=== PATIENT | male | born 1930 | race Caucasian/White ===

== ENCOUNTER 2017-02-25 08:50 | Inpatient (IN) | payer OTHER ==
--- NOTE | 2017-02-25 09:05 | PDOC ---
History of Present Illness - General Chief Complaint: Bleeding from Anus Stated Complaint: BLOOD IN STOOL Time Seen by Provider: 02/25/17 09:00 - History of Present Illness Initial Comments: 02/25/17 09:02 86 yo M with h/o HTN, NIDDM, and GERD, who presents with blood per rectum. Pt. reports brisk bright red blood per rectum beginning 1400 ( 02/25/17) with diffuse abdominal pain. Two episodes prior to arrival with gross bright red blood intermixed with stool. He describes abdominal pain as achy and unremitting. No alleviators or triggers of pain. Denies postprandial pain or trauma to abdomen. Associated with nausea and one episode of non bilious emesis. No hematemesis. Endorses ongoing constipation. Denies fevers/chills, chest pain, SOB, urinary complaints, lightheadedness. Abdominal pain mildly improved with 2 ibruprofen tablets. Denies chronic NSAID use or anticoagulation. ASA 81 mg PO QD. No changes in diet, recent trips, or Denies h /o GI disorders, or abdominal procedures. States that he had colonoscopy 3 years ago with polyps. Denies h/o tobacco or alcohol use. Technical Solutions Director phone # [phone] Past History - Past Medical History Allergies/Adverse Reactions: Allergies Allergy/AdvReac Type Severity Reaction Status Date / Time No Known Allergies Allergy Verified 02/25/17 08:55 Home Medications: Ambulatory Orders Aspirin [Aspir 81] 81 mg PO DAILY 04/01/14 Amlodipine Besylate [Norvasc -] 5 mg PO DAILY 04/30/16 Glimepiride 2 mg PO DAILY 04/30/16 Losartan Potassium 100 mg PO DAILY 04/30/16 Pantoprazole Sodium 40 mg PO DAILY 04/30/16 Diabetes: Yes HTN: Yes Hypercholesterolemia: Yes - Surgical History Appendectomy: Yes - Immunization History Immunization Up to Date: Yes - Psycho/Social/Smoking Cessation Hx Suicidal Ideation: No Smoking History: Never smoked Information on smoking cessation initiated: No Hx Alcohol Use: No Drug/Substance Use Hx: No Substance Use Type: None Review of Systems - Review of Systems Comments:: 02/25/17 09:48 GENERAL/CONSTITUTIONAL: No fever or chills. No weakness. HEAD, EYES, EARS, NOSE AND THROAT: No change in vision. No ear pain or discharge. No sore throat.- CARDIOVASCULAR: No chest pain or shortness of breath RESPIRATORY: No cough, wheezing, or hemoptysis. GASTROINTESTINAL: + abdominal pain. + nausea. + constipation. without vomiting. No diarrhea or . GENITOURINARY: No dysuria, frequency, or change in urination. MUSCULOSKELETAL: No joint or muscle swelling or pain. No neck or back pain. SKIN: No rash NEUROLOGIC: No headache, vertigo, loss of consciousness, or change in strength/ sensation. ENDOCRINE: No increased thirst. No abnormal weight change HEMATOLOGIC/LYMPHATIC: No anemia, easy bleeding, or history of blood clots. ALLERGIC/IMMUNOLOGIC: No hives or skin allergy. *Physical Exam - Vital Signs Last Vital Signs Temp Pulse Resp BP Pulse Ox 97.9 F 86 18 118/79 100 02/25/17 08:52 02/25/17 08:52 02/25/17 08:52 02/25/17 08:52 02/25/17 08:52 - Physical Exam Comments: 02/25/17 09:49 GENERAL: Awake, alert, and fully oriented, in no acute distress HEAD: No signs of trauma, normocephalic, atraumatic EYES: + Conjuctival pallor. PERRLA, EOMI, sclera anicteric. ENT: Auricles normal inspection, hearing grossly normal, nares patent, oropharynx clear without exudates. Moist mucosa NECK: Normal ROM, supple, no lymphadenopathy, JVD, or masses LUNGS: No distress, speaks full sentences, clear to auscultation bilaterally HEART: Regular rate and rhythm, normal S1 and S2, no murmurs, rubs or gallops, peripheral pulses normal and equal bilaterally. ABDOMEN: ttp throughout with lower midline predominance. Soft, nontender, normoactive bowel sounds. +involuntary guarding. no rigidity, no rebound. No masses. Absent CVA ttp. Absent tavares sign or mcburney point tenderness. No evidence of hemorrhoids on rectal exam . + Active bleeding. EXTREMITIES: Normal inspection, Normal range of motion, no edema. No clubbing or cyanosis. SKIN: Warm, Dry, normal turgor, no rashes or lesions noted. Heart Score/ECG Review - History History: Slightly suspicious - Electrocardiogram EKG: Normal - Selden Selden: Left Selden Deviation ED Treatment Course - LABORATORY CBC & Chemistry Diagram: 02/25/17 09:10 02/25/17 09:10 - RADIOLOGY Radiograph Interpretation: 02/25/17 14:06 EXAM#: TYPE/EXAM: RESULT: CT/ABDOMEN PELVIS CT WITH CONTR EXAM: CT ABDOMEN AND PELVIS WITH IV CONTRAST INDICATION: Abdominal pain. Rectal bleeding. TECHNIQUE: Contiguous axial CT images of the abdomen and pelvis were obtained from the lower thorax through the pubic symphysis with oral contrast and following intravenous administration of 91 mL of Omnipaque 350 contrast. Coronal and sagittal reconstructions obtained. COMPARISON: 08/10/2008 CT abdomen/pelvis. Correlation made to the 04/30/2016 lumbar spine x-ray. FINDINGS: There is minimal dependent subsegmental atelectatic change in the lung bases. Visualized lung bases are otherwise clear. The heart is normal in size. There is calcific atherosclerosis along the visualized coronary arteries (most notably the right coronary artery). The liver is normal in size and contour with no evidence of enhancing mass. The gallbladder is not pathologically distended. There is no evidence of intrahepatic or extrahepatic biliary ductal dilatation. There is fatty involution of the pancreatic head. The pancreas is otherwise unremarkable. The spleen is normal in size, with no focal lesions. There is diffuse thickening of the adrenal glands, left more than right, which appears grossly similar to 2008 CT. There is an indeterminant 1.5 x 1.2 cm nodule in the lateral limb of the left adrenal gland, similar in size to the prior CT. The kidneys are normal in size with symmetric enhancement. There is no hydroureteronephrosis. There is a single nonobstructing calculus in an upper pole calyx of the right and left kidney, measuring up to 3 mm. There are subcentimeter exophytic hypodensity in the lower pole of the left kidney, most likely a cyst. There is a small focal area of cortical scarring anteriorly in the lower pole of the right kidney, which may be the sequela of prior infection. The abdominal aorta is of normal caliber. There is calcific atherosclerosis along the abdominal aorta and takeoff of the major visceral branches, common iliac, internal iliac and common femoral arteries. There are no pathologically enlarged retroperitoneal lymph nodes by size criteria. There are no dilated loops of large or small bowel to suggest obstruction. There is a relatively long segment wall thickening of the colon extending from the splenic flexure into the proximal sigmoid colon with mild pericolonic fat stranding. There is sigmoid diverticulosis with no evidence of acute diverticulitis. There is no free intraperitoneal air, ascites or drainable fluid collection within the abdomen or pelvis. The prostate gland is not enlarged, with nonspecific coarse central calcifications, unchanged. The urinary bladder is unremarkable. 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 There are no pathologically enlarged pelvic sidewall lymph nodes by size criteria. There is no acute fracture in the visualized osseous structures. There is anterior wedging compression fracture of the T12 vertebral body with mild loss of height and minimal osseous retropulsion. This compression fracture was present to some degree on 2015 lumbar spine x-ray. IMPRESSION: 1. Nonspecific colitis extending from the splenic flexure into the proximal sigmoid colon, may be infectious or inflammatory. Ischemic is less likely. Please correlate clinically. No free intraperitoneal air. No ascites or drainable fluid collection within the abdomen or pelvis. 2. Bilateral nonobstructing nephrolithiasis measuring up to 3 mm. No hydroureteronephrosis. 3. Nonspecific thickening of the adrenal glands (left more than right), with an indeterminate 1.5 cm left adrenal gland nodule. These findings are similar to 08/10/2008 CT abdomen/pelvis and may be related to adenomatous hypertrophy. 4. Anterior wedging T12 compression fracture with mild loss of height, similar to 04/30/2016 lumbar spine x-ray, allowing for differences between modalities. Medical Decision Making - Medical Decision Making 02/25/17 09:52 86 yo M with h/o HTN, NIDDM, and GERD, who presents with blood per rectum. BRBPR beginning 1400 ( 02/25/17) with diffuse abdominal pain. Associated with nonbilious emesis. States that he had colonoscopy 3 years ago with polyps. Denies h/o tobacco or alcohol use. Technical Solutions Director phone # [phone] ED Course: CBC, CMP, Lactate, EKG: Unremarkable UA Morphine 2 mg, Ondansetron 4mg Pantoprazole 02/25/17 10:06 CBC, CMP, UA, Lipase: WBC: 13.8, CR/BUN Unremarkable 02/25/17 11:10 3.8 Lactic acid - FOBT + 02/25/17 14:06 CT ABDOMEN/PELVIS: IMPRESSION: 1. Nonspecific colitis extending from the splenic flexure into the proximal sigmoid colon, may be infectious or inflammatory. Ischemic is less likely. Please correlate clinically. No free intraperitoneal air. No ascites or drainable fluid collection within the abdomen or pelvis. 2. Bilateral nonobstructing nephrolithiasis measuring up to 3 mm. No hydroureteronephrosis. 3. Nonspecific thickening of the adrenal glands (left more than right), with an indeterminate 1.5 cm left adrenal gland nodule. These findings are similar to 08/10/2008 CT abdomen/pelvis and may be related to adenomatous hypertrophy. 4. Anterior wedging T12 compression fracture with mild loss of height, similar to 04/30/2016 lumbar spine x-ray, allowing for differences between modalities. Levofloxacin 500 mg, Metronidazole 500 mg. 02/25/17 15:[address] Ade Echevarria Consult Dr. Obregon GI *DC/Admit/Observation/Transfer Diagnosis at time of Disposition: Colitis - Discharge Dispostion Admit: Yes
[2017-02-25 09:30] LABS: BASOPHIL 0.7 % (0-2.0); EOSINOPHIL 0.7 % (0-4.5); MCH 32.4 pg (25.7-33.7); MCHC 33.5 g/dl (32.0-35.9); MEAN CELL VOLUME 96.6 fl (80-96); MEAN PLT VOLUME 8.4 fl (7.5-11.1); NEUTROPHILS 77.3 % (42.8-82.8); PLATELET COUNT 311 K/MM3 (134-434); RDW 12.6 % (11.9-15.9); WHITE BLOOD COUNT 12.8 K/mm3 (4.0-10.0)
[2017-02-25] MEDS ORDERED: SODIUM CHLORIDE 1,000 ML IV STA (09:37)
[2017-02-25] MEDS ORDERED: PANTOPRAZOLE SODIUM 40 MG in SODIUM CHLORIDE 100 ML IVPB ONE (09:37)
[2017-02-25] MEDS ORDERED: morphine CARPU-JECT 2 MG/1 ML DISP.SYRIN IVPUSH ONE (09:43)
[2017-02-25] MEDS ORDERED: ONDANSETRON 4 MG/2 ML VIAL IVPUSH ONE (09:43)
[2017-02-25 09:52] LABS: INR 1.18 (0.82-1.09)
[2017-02-25] MEDS ORDERED: PANTOPRAZOLE SODIUM 100 ML IVPB ONE (09:52)
[2017-02-25 10:02] LABS: ALBUMIN 3.8 g/dl (3.4-5.0); ANION GAP 12 (8-16); BILIRUBIN,TOTAL 0.7 mg/dL (0.2-1.0); CALCIUM 9.1 mg/dL (8.5-10.1); CO2 24 mmol/L (21-32); CREATININE 0.9 mg/dL (0.7-1.3); GLUCOSE,RANDOM 242 mg/dL (74-106); SGOT/AST 16 U/L (15-37); SGPT/ALT 20 U/L (12-78); TOT PROT 6.5 g/dl (6.4-8.2)
[2017-02-25 10:03] LABS: ALK PHOS 32 U/L (45-117)
[2017-02-25] MEDS ORDERED: ONDANSETRON 4 MG/2 ML VIAL ONE (10:11)
[2017-02-25] MEDS ORDERED: morphine CARPU-JECT 2 MG/1 ML DISP.SYRIN ONE (10:11)
--- NOTE | 2017-02-25 10:25 | PDOC ---
Attending Attestation - Resident Resident Name: ShawnAlli - ED Attending Attestation I have performed the following: I have examined & evaluated the patient, The case was reviewed & discussed with the resident, I agree w/resident's findings & plan, Exceptions are as noted - HPI HPI: 02/25/17 10:20 86-year-old male with history of hypertension, diabetes presents with abdominal pain and rectal bleeding. Patient notes onset of diffuse abdominal pain yesterday afternoon, followed by large loose bowel movement yesterday afternoon , unclear whether associated with bleeding at that time. Had 1 episode of nonbloody nonbilious emesis, since then has had persistent mild to moderate generalized abdominal pain with small amount of rectal output that is blood- tinged. No lightheadedness or syncope, takes aspirin daily, has regular colonoscopies, last performed about 4 years ago with benign polyps that were removed. Sees Dr. Obregon of GI. - Physicial Exam PE: 02/25/17 10:22 vital signs stable. Slightly dry mucosa Abdomen is distended but soft, tender greatest in the lower quadrants, no rebound. BS wnl, rectal per resident note - Medical Decision Making 02/25/17 10:23 Patient seen and evaluated with the resident. I agree with the overall evaluation, assessment, and management with the following summary of visit: 86-year-old male with hypertension and diabetes on aspirin presents with abdominal pain and diarrhea, question bright red blood per rectum. Hemodynamically stable, tenderness in the lower quadrants which could be concerning for colitis or diverticulitis plus or minus bleeding diverticulosis. Less likely upper GI source, seems more consistent with infectious process. Rule out SBO though no surgical history. Labs, urinalysis IV fluids, PPI, pain medicine CT of the abdomen and pelvis Reassess, discuss with Dr. Obregon. 02/25/17 14:32 workup consistent with colitis, Hgb stable, remained HD stable. treated with abx proceed with admission, GI consulted Heart Score/ECG Review #1 ECG reviewed & interpreted by me at: 09:09 General ECG Interpretation: Sinus Rhythm, Normal Rate (<1mm depressions laterally, no reciprocal changes), Normal Intervals (qtc 442), No acute ischemic changes (<1mm depressions laterally,) Compared to previous ECG there are: Previous ECG unavail
[2017-02-25 10:28] LABS: URINE APPEARANCE CLEAR; URINE BILIRUBIN NEGATIVE (NEGATIVE); URINE BLOOD NEGATIVE (NEGATIVE); URINE COLOR LTYELLOW; URINE GLUCOSE (UA) 3+ (NEGATIVE); URINE KETONE TRACE (NEGATIVE); URINE LEUK ESTERASE NEGATIVE (NEGATIVE); URINE NITRITE NEGATIVE (NEGATIVE); URINE PROTEIN NEGATIVE (NEGATIVE); URINE UROBILINOGEN NEGATIVE mg/dL (0.2-1.0)
[2017-02-25] MEDS ORDERED: SODIUM CHLORIDE 1,000 ML IV SCH (12:00)
[2017-02-25] MEDS ORDERED: METRONIDAZOLE 500 MG PREMIXED 100 ML IVPB ONE ×2 (14:02→14:12)
[2017-02-25] MEDS ORDERED: LEVOFLOXACIN 500 MG IVPB 100 ML IVPB ONE ×2 (14:03→14:12)
[2017-02-25 16:29] VITALS: BMI 26.6
[2017-02-25] MEDS ORDERED: ACETAMINOPHEN 325 MG TABLET (FP) PO PRN (16:35)
[2017-02-25] MEDS: SODIUM CHLORIDE 0.45% 1,000 ML IV SCH (16:58)
--- NOTE | 2017-02-25 17:24 | EKG ---
Test Reason : Blood Pressure : / mmHG Vent. Rate : 072 BPM Atrial Rate : 072 BPM P-R Int : 188 ms QRS Dur : 094 ms QT Int : 404 ms P-R-T Axes : 021 -44 000 degrees QTc Int : 442 ms NORMAL SINUS RHYTHM LEFT AXIS DEVIATION MINIMAL VOLTAGE CRITERIA FOR LVH, MAY BE NORMAL VARIANT SEPTAL INFARCT , AGE UNDETERMINED ABNORMAL ECG WHEN COMPARED WITH ECG OF 18-NOV-2008 17:43, NO SIGNIFICANT CHANGE WAS FOUND REPEAT EKG IF CLINICALLY INDICATED Confirmed by LORENZO SOTELO MD ([id number]) on 02/25/2017 5:24:28 PM Referred By: Confirmed By:LORENZO SOTELO MD
[2017-02-25] MEDS: METRONIDAZOLE 500 MG PREMIXED 100 ML IVPB SCH (18:10)
--- NOTE | 2017-02-25 19:53 | CON.GI ---
Consult Consult Specialty:: gastroenterology Referred by:: Dr Aed Echevarria - History of Present Illness History of Present Illness: 86 y/o male with history of of colonic polyp was doing well until yesterday when he developed bloody diarrhea associated with abdominal pain. He denies having fever, recent antibiotic use nor recent travel history. Catscan revealed thickening of the left colon . - Alcohol/Substance Use Hx Alcohol Use: Yes (socially) - Smoking History Smoking history: Never smoked Home Medications - Allergies Allergies/Adverse Reactions: Allergies Allergy/AdvReac Type Severity Reaction Status Date / Time No Known Allergies Allergy Verified 02/25/17 08:55 - Home Medications Home Medications: Ambulatory Orders Aspirin [Aspir 81] 81 mg PO DAILY 04/01/14 Amlodipine Besylate [Norvasc -] 5 mg PO DAILY 04/30/16 Glimepiride 2 mg PO DAILY 04/30/16 Losartan Potassium 100 mg PO DAILY 04/30/16 Pantoprazole Sodium 40 mg PO DAILY 04/30/16 Family Disease History - Family Disease History Family History: Unable to Obtain Review of Systems - Review of Systems Constitutional: denies: Fever Eyes: denies: Blind Spots HENT: denies: Difficult Swallowing Neck: denies: Decreased ROM Respiratory: denies: Hemoptysis Gastrointestinal: denies: Abdominal Pain, Bloating, Constipation, Diarrhea, Dysphagia, Indigestion, Melena Physical Exam-GI Vital Signs: Vital Signs Temperature 97.6 F 02/25/17 16:11 Pulse Rate 63 02/25/17 16:11 Respiratory Rate 18 02/25/17 16:11 Blood Pressure 160/71 02/25/17 16:11 O2 Sat by Pulse Oximetry (%) 96 02/25/17 16:39 Constitutional: Yes: Well Nourished Eyes: Yes: Conjunctiva Clear HENT: Yes: Atraumatic Neck: Yes: Trachea Midline Cardiovascular: Yes: Regular Rate and Rhythm Respiratory: Yes: CTA Bilaterally ...Palpate: Yes: Soft. No: Firm/Rigid, Guarding, Hepatomegaly, Mass, Pulsatile Mass, Splenomegaly, Tenderness Labs: INR, PTT INR 1.18 (0.82-1.09) H 02/25/17 09:10 Problem List - Problems (1) Colitis Assessment/Plan: r/o ischemic vs infectious diarrhea R> stool analysis continue IV hydration and antibiotic advance diet to low residue lactose free diet as tolerated Code(s): K52.9 - NONINFECTIVE GASTROENTERITIS AND COLITIS, UNSPECIFIED
[2017-02-26] MEDS: METRONIDAZOLE 500 MG PREMIXED 100 ML IVPB SCH ×3 (01:07→18:16)
[2017-02-26] MEDS: INSULIN SLIDING SCALE (NOVOLOG) 1 VIAL SQ SCH ×2 (06:07→17:30)
[2017-02-26 08:56] LABS: BASOPHIL 0.5 % (0-2.0); EOSINOPHIL 2.6 % (0-4.5); MCH 32.6 pg (25.7-33.7); MCHC 33.7 g/dl (32.0-35.9); MEAN PLT VOLUME 9.9 fl (7.5-11.1); NEUTROPHILS 58.4 % (42.8-82.8); PLATELET COUNT 225 K/MM3 (134-434); RDW 12.7 % (11.9-15.9); WHITE BLOOD COUNT 6.9 K/mm3 (4.0-10.0)
[2017-02-26 10:37] LABS: ALBUMIN 3.3 g/dl (3.4-5.0); ALK PHOS 30 U/L (45-117); ANION GAP 10 (8-16); BILIRUBIN,TOTAL 1.1 mg/dL (0.2-1.0); CALCIUM 8.3 mg/dL (8.5-10.1); CO2 25 mmol/L (21-32); CREATININE 0.6 mg/dL (0.7-1.3); GLUCOSE,RANDOM 101 mg/dL (74-106); SGOT/AST 10 U/L (15-37); SGPT/ALT 18 U/L (12-78); TOT PROT 5.7 g/dl (6.4-8.2)
[2017-02-26] MEDS ORDERED: SODIUM CHLORIDE 100 ML IVPB ONE (10:56)
[2017-02-26] MEDS ORDERED: PANTOPRAZOLE SODIUM 40 MG VIAL ONE (10:56)
[2017-02-26] MEDS: LOSARTAN POTASSIUM 50 MG TABLET (FP) PO SCH (11:02)
[2017-02-26] MEDS: amLODIPine BESYLATE 5 MG TABLET (FP) PO SCH (11:03)
[2017-02-26] MEDS: PANTOPRAZOLE SODIUM 40 MG in SODIUM CHLORIDE 100 ML IVPB SCH (11:03)
[2017-02-26] MEDS: LEVOFLOXACIN 500 MG IVPB 100 ML IVPB SCH (12:01)
--- NOTE | 2017-02-26 13:27 | HP ---
Admitting History and Physical - Primary Care Physician PCP: Saroj Reddy - Admission Chief Complaint: abd pain and bloody diarrhea History of Present Illness: ER HISTORY - History of Present Illness Initial Comments: 02/25/17 09:02 86 yo M with h/o HTN, NIDDM, and GERD, who presents with blood per rectum. Pt. reports brisk bright red blood per rectum beginning 1400 ( 02/25/17) with diffuse abdominal pain. Two episodes prior to arrival with gross bright red blood intermixed with stool. He describes abdominal pain as achy and unremitting. No alleviators or triggers of pain. Denies postprandial pain or trauma to abdomen. Associated with nausea and one episode of non bilious emesis. No hematemesis. Endorses ongoing constipation. Denies fevers/chills, chest pain, SOB, urinary complaints, lightheadedness. Abdominal pain mildly improved with 2 ibruprofen tablets. Denies chronic NSAID use or anticoagulation. ASA 81 mg PO QD. No changes in diet, recent trips, or Denies h /o GI disorders, or abdominal procedures. States that he had colonoscopy 3 years ago with polyps. Denies h/o tobacco or alcohol use.' Pt examined by me on the floors Pt had bloody bm yesterday--several times--- bright red blood in stool , associated diffuse abdominal pain , no nausea. denies antibiotics use, travel history History Source: Patient Limitations to Obtaining History: No Limitations - Past Medical History Cardiovascular: Yes: HTN, Hyperlipdemia Endocrine: Yes: Diabetes Mellitus - Smoking History Smoking history: Never smoked - Alcohol/Substance Use Hx Alcohol Use: Yes (socially) Home Medications - Allergies Allergies/Adverse Reactions: Allergies Allergy/AdvReac Type Severity Reaction Status Date / Time No Known Allergies Allergy Verified 02/25/17 08:55 - Home Medications Home Medications: Ambulatory Orders Aspirin [Aspir 81] 81 mg PO DAILY 04/01/14 Amlodipine Besylate [Norvasc -] 5 mg PO DAILY 04/30/16 Glimepiride 2 mg PO DAILY 04/30/16 Losartan Potassium 100 mg PO DAILY 04/30/16 Pantoprazole Sodium 40 mg PO DAILY 04/30/16 Review of Systems - Review of Systems Constitutional: denies: Chills, Fever, Lethargy, Loss of Appetite, Unintentional Wgt. Loss, Weakness Gastrointestinal: reports: Abdominal Pain, Diarrhea, Rectal Bleeding. denies: Bloating, Constipation, Nausea Physical Examination Vital Signs: Vital Signs Temperature 97.7 F 02/26/17 10:14 Pulse Rate 67 02/26/17 10:14 Respiratory Rate 18 02/26/17 10:14 Blood Pressure 130/65 02/26/17 10:14 O2 Sat by Pulse Oximetry (%) 95 02/25/17 21:00 Constitutional: Yes: No Distress, Calm Cardiovascular: Yes: Regular Rate and Rhythm Respiratory: Yes: CTA Bilaterally Gastrointestinal: Yes: Normal Bowel Sounds, Soft, Tenderness (left qudrant). No : Distention Edema: No Psychiatric: Yes: Alert, Oriented Labs: CBC, BMP 02/26/17 06:30 02/26/17 06:00 Imaging - Results Cat Scan: Report Reviewed Problem List - Problems (1) Colitis Code(s): K52.9 - NONINFECTIVE GASTROENTERITIS AND COLITIS, UNSPECIFIED (2) HTN (hypertension) Code(s): I10 - ESSENTIAL (PRIMARY) HYPERTENSION Qualifiers: Hypertension type: essential hypertension Qualified Code(s): I10 - Essential (primary) hypertension (3) Diabetes mellitus Code(s): E11.9 - TYPE 2 DIABETES MELLITUS WITHOUT COMPLICATIONS Qualifiers: Diabetes mellitus type: type 2 (4) GI bleed Code(s): K92.2 - GASTROINTESTINAL HEMORRHAGE, UNSPECIFIED Qualifiers: GI bleed type/associated pathology: anorectal hemorrhage Qualified Code(s): K62.5 - Hemorrhage of anus and rectum Assessment/Plan PLAN stool studies sent, check stool cdiff R/O ischemic vs inflammatory on iv antibiotics-- Flagyl and levaquin pt admits he feels better today than yesterday Change diet GI eval appreciated decrease IV fluids OOB daily SCD for DVT prophylaxis Protonix IV dc ASA Spoke with nurse time spent 40 min
[2017-02-26] MEDS: SODIUM CHLORIDE 0.45% 1,000 ML IV SCH (18:16)
[2017-02-27] MEDS: METRONIDAZOLE 500 MG PREMIXED 100 ML IVPB SCH ×3 (00:59→18:58)
[2017-02-27] MEDS: INSULIN SLIDING SCALE (NOVOLOG) 1 VIAL SQ SCH ×2 (06:19→17:23)
[2017-02-27 07:48] LABS: BASOPHIL 0.4 % (0-2.0); EOSINOPHIL 3.5 % (0-4.5); MCH 32.6 pg (25.7-33.7); MCHC 34.1 g/dl (32.0-35.9); MEAN CELL VOLUME 95.7 fl (80-96); MEAN PLT VOLUME 8.5 fl (7.5-11.1); NEUTROPHILS 52.5 % (42.8-82.8); PLATELET COUNT 263 K/MM3 (134-434); RDW 12.5 % (11.9-15.9); WHITE BLOOD COUNT 6.1 K/mm3 (4.0-10.0)
[2017-02-27 08:34] LABS: ALBUMIN 3.3 g/dl (3.4-5.0); ALK PHOS 31 U/L (45-117); ANION GAP 8 (8-16); BILIRUBIN,TOTAL 0.7 mg/dL (0.2-1.0); CALCIUM 8.3 mg/dL (8.5-10.1); CO2 28 mmol/L (21-32); CREATININE 0.6 mg/dL (0.7-1.3); GLUCOSE,RANDOM 127 mg/dL (74-106); SGOT/AST 11 U/L (15-37); SGPT/ALT 17 U/L (12-78); TOT PROT 5.7 g/dl (6.4-8.2)
[2017-02-27] MEDS ORDERED: PANTOPRAZOLE SODIUM 40 MG VIAL ONE (10:27)
[2017-02-27] MEDS ORDERED: SODIUM CHLORIDE 100 ML IVPB ONE (10:27)
[2017-02-27] MEDS: LOSARTAN POTASSIUM 50 MG TABLET (FP) PO SCH (10:30)
[2017-02-27] MEDS: amLODIPine BESYLATE 5 MG TABLET (FP) PO SCH (10:31)
[2017-02-27] MEDS: PANTOPRAZOLE SODIUM 40 MG in SODIUM CHLORIDE 100 ML IVPB SCH (10:32)
[2017-02-27] MEDS: LEVOFLOXACIN 500 MG IVPB 100 ML IVPB SCH (10:32)
--- NOTE | 2017-02-27 16:04 | PN ---
Progress Note, Physician Chief Complaint: patient feeling better He did not have a bowel movement so far Tolerated diet Pain in the abdomen is better - Current Medication List Current Medications: Active Medications Acetaminophen (Tylenol -) 650 mg PO Q6H PRN PRN Reason: FEVER OR PAIN Amlodipine Besylate (Norvasc -) 5 mg PO DAILY [facility] Last Admin: 02/27/17 10:31 Dose: 5 mg Metronidazole (Flagyl 500mg Premixed Ivpb -) 100 mls @ 100 mls/hr IVPB Q8H-IV [facility] Last Admin: 02/27/17 10:31 Dose: 100 mls/hr Levofloxacin (Levaquin 500 Mg Premixed Ivpb -) 100 mls @ 100 mls/hr IVPB DAILY [facility] Last Admin: 02/27/17 10:32 Dose: 100 mls/hr Pantoprazole Sodium 40 mg/ (Sodium Chloride) 100 mls @ 200 mls/hr IVPB DAILY [facility] Last Admin: 02/27/17 10:32 Dose: 200 mls/hr Sodium Chloride (1/2 Normal Saline) 1,000 mls @ 100 mls/hr IV ASDIR [facility] Last Admin: 02/26/17 18:16 Dose: 100 mls/hr Insulin Aspart (Novolog Vial Sliding Scale -) 1 vial SQ BIDAC [facility] PRN Reason: Protocol Last Admin: 02/27/17 06:19 Dose: Not Given Losartan Potassium (Cozaar -) 100 mg PO DAILY [facility] Last Admin: 02/27/17 10:30 Dose: 100 mg - Objective Vital Signs: Vital Signs Temperature 97.7 F 02/27/17 15:55 Pulse Rate 71 02/27/17 15:55 Respiratory Rate 18 02/27/17 15:55 Blood Pressure 138/67 02/27/17 15:55 O2 Sat by Pulse Oximetry (%) 96 02/27/17 09:00 Constitutional: Yes: No Distress, Calm Cardiovascular: Yes: Regular Rate and Rhythm Respiratory: Yes: CTA Bilaterally Gastrointestinal: Yes: Normal Bowel Sounds, Soft, Tenderness (tender left quadrant, decreased). No: Distention Edema: No Labs: CBC, BMP 02/27/17 06:00 02/27/17 06:00 INR, PTT INR 1.18 (0.82-1.09) H 02/25/17 09:10 Problem List - Problems (1) Colitis Code(s): K52.9 - NONINFECTIVE GASTROENTERITIS AND COLITIS, UNSPECIFIED (2) HTN (hypertension) Code(s): I10 - ESSENTIAL (PRIMARY) HYPERTENSION Qualifiers: Hypertension type: essential hypertension Qualified Code(s): I10 - Essential (primary) hypertension (3) Diabetes mellitus Code(s): E11.9 - TYPE 2 DIABETES MELLITUS WITHOUT COMPLICATIONS Qualifiers: Diabetes mellitus type: type 2 (4) GI bleed Code(s): K92.2 - GASTROINTESTINAL HEMORRHAGE, UNSPECIFIED Qualifiers: GI bleed type/associated pathology: anorectal hemorrhage Qualified Code(s): K62.5 - Hemorrhage of anus and rectum Assessment/Plan PLAN stool C. difficile is negative on iv antibiotics-- Flagyl and levaquin -symptomatically better discontinue IV fluids OOB daily SCD for DVT prophylaxis change Protonix to oral dc ASA discharge planning for tomorrow
[2017-02-27] MEDS ORDERED: INSULIN (NOVOLOG) ASPART 100 UNITS/ML 10ML VIAL ONE (17:32)
[2017-02-28] MEDS: METRONIDAZOLE 500 MG PREMIXED 100 ML IVPB SCH ×2 (01:32→10:09)
[2017-02-28 06:56] VITALS: BP 154/79; PULSE 65; TEMP 98.4
[2017-02-28] MEDS: INSULIN SLIDING SCALE (NOVOLOG) 1 VIAL SQ SCH (07:59)
[2017-02-28] MEDS ORDERED: PANTOPRAZOLE 40 MG TABLET (FP) PO SCH (10:00)
[2017-02-28] MEDS: LOSARTAN POTASSIUM 50 MG TABLET (FP) PO SCH (10:08)
[2017-02-28] MEDS: LEVOFLOXACIN 500 MG IVPB 100 ML IVPB SCH (10:09)
[2017-02-28] MEDS: amLODIPine BESYLATE 5 MG TABLET (FP) PO SCH (10:10)
== END 2017-02-28 16:54 | disposition home or self-care (01) | DRG 392 ==
LOC: JER 08:50 → JERBED 14:41 → J8W 15:56
PROVIDERS: ADMIT Internal Medicine; ATTEND Internal Medicine
DX: K52.9 Noninfective gastroenteritis and colitis, unspecified (principal); K92.2 Gastrointestinal hemorrhage, unspecified; I10 Essential (primary) hypertension; E11.9 Type 2 diabetes mellitus without complications; K21.9 Gastro-esophageal reflux disease without esophagitis
CPT/HCPCS: 36415; 74177-TC; 80053; 81003; 82272; 83605; 83690; 85025; 85610; 86850; 86900; 86901; 87045; 87046; 87205; 87324; 87449; 93005; 93010; 99284-25; Q9967

== ENCOUNTER 2018-03-23 10:08 | Emergency (ER) | payer OTHER ==
[2018-03-23 10:25] VITALS: BP 136/53; PULSE 83; TEMP 97.9; BMI 25.7
--- NOTE | 2018-03-23 12:17 | PDOC ---
History of Present Illness - General Chief Complaint: Injury Stated Complaint: INJURY Time Seen by Provider: 03/23/18 11:23 - History of Present Illness Initial Comments: 87-year-old male presents for evaluation of right shoulder pain and right-sided rib pain after fall yesterday. Patient had a mechanical fall at home injuring his right side. He did not hit his head. There was no loss of consciousness, post injury nausea, vomiting, visual changes. He has a past medical history significant for diabetes hypertension and dyslipidemia. His chief complaint is right shoulder pain and right-sided rib pain. 03/23/18 12:12 Past History - Past Medical History Allergies/Adverse Reactions: Allergies Allergy/AdvReac Type Severity Reaction Status Date / Time No Known Allergies Allergy Verified 02/25/17 08:55 Home Medications: Ambulatory Orders Amlodipine Besylate [Norvasc -] 5 mg PO DAILY 04/30/16 Glimepiride 2 mg PO DAILY 04/30/16 Losartan Potassium 100 mg PO DAILY 04/30/16 Pantoprazole Sodium 40 mg PO DAILY 04/30/16 Pantoprazole Sodium [Protonix -] 40 mg PO DAILY #30 tab 02/27/17 levoFLOXacin [Levaquin -] 500 mg PO DAILY #5 tablet 02/27/17 metroNIDAZOLE [Flagyl -] 500 mg PO Q8H #15 tablet 02/27/17 Anemia: No Asthma: No Cancer: No Cardiac Disorders: No CVA: No COPD: No CHF: No Dementia: No Diabetes: Yes GI Disorders: No Disorders: No HTN: Yes Hypercholesterolemia: Yes Liver Disease: No Seizures: No Thyroid Disease: No - Surgical History Appendectomy: Yes - Immunization History Immunization Up to Date: Yes - Suicide/Smoking/Psychosocial Hx Smoking History: Never smoked Hx Alcohol Use: Yes (socially) Drug/Substance Use Hx: No Substance Use Type: Alcohol Review of Systems - Review of Systems Musculoskeletal: Yes: See HPI, Joint Pain All Other Systems: Reviewed and Negative *Physical Exam - Vital Signs Last Vital Signs Temp Pulse Resp BP Pulse Ox 97.9 F 83 18 136/53 L 100 03/23/18 10:20 03/23/18 10:20 03/23/18 10:20 03/23/18 10:20 03/23/18 10:20 - Physical Exam Comments: HEAD: NC/AT EYES: Conjuntiva clear Ears: Canals and TM's normal NOSE: No d/c THROAT: Moist mucous membrances, oral pharanx clear, uvula midline NECK: Supple without adenopathy CARDIAC: S1 S2 LUNGS: CTA Full and Equal breath sounds, is mild right-sided rib tenderness diffusely throughout ribs 8-12 ABDOMEN: Soft NT ND MS: Full ROM in all joints without edema NEUROLOGIC: No gross sensory or motor deficits, NVID SKIN: Normal color and temperature no lesions or rashes Right shoulder skin color and temperature are normal. Is mild diffuse tenderness which is nonspecific. He has full internal and external rotation without discomfort. He is unable to tolerate rotator cuff strength testing or stability testing. He has no gross sensorimotor deficits she is neurovascularly intact. 03/23/18 12:13 ED Treatment Course - RADIOLOGY Radiology Studies Ordered: Category Date Time Status CHEST PA & LAT [RAD] Stat Radiology 03/23/18 11:26 Taken RIBS RIGHT SIDE [RAD] Stat Radiology 03/23/18 11:26 Taken SHOULDER-RIGHT [RAD] Stat Radiology 03/23/18 11:26 Taken Medical Decision Making - Medical Decision Making X-rays reviewed show no evidence of fracture trauma destructive process the right shoulder. 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 Chest x-ray shows cardiomegaly I do not appreciate a pneumothorax or acute fracture on radiograph rib radiographs show no evidence of displaced fracture. There may be nuchal an ocult fracture around the rib 11 or 12 03/23/18 12:16 *DC/Admit/Observation/Transfer Diagnosis at time of Disposition: Contusion of shoulder, Contusion of rib on right side - Discharge Dispostion Disposition: HOME - Referrals Referrals: Saroj Reddy MD [Primary Care Provider] - Danyel Delgado MD [Staff Physician] - - Patient Instructions Printed Discharge Instructions: Contusion, DI for Rib Contusion Additional Instructions: Please follow-up with orthopedic surgery for further evaluation and treatment options. Return to the emergency room should symptoms worsen or go unresolved. Please continue to take her medication as directed. He should follow-up with orthopedic surgery in 2-3 days for further evaluation and treatment options. Shoulder and follow-up with your primary care physician in one to 2 days for further evaluation of your right sided rib pain. - Post Discharge Activity
== END 2018-03-23 12:23 | disposition home or self-care (01) ==
LOC: JERFT 10:08
DX: S40.011A Contusion of right shoulder, initial encounter (principal); S20.211A Contusion of right front wall of thorax, initial encounter; W07.XXXA Fall from chair, initial encounter; Y93.89 Activity, other specified; Y92.038 Other place in apartment as the place of occurrence of the external cause; Y99.8 Other external cause status; I10 Essential (primary) hypertension; E78.00 Pure hypercholesterolemia, unspecified; E11.9 Type 2 diabetes mellitus without complications; Z79.84 Long term (current) use of oral hypoglycemic drugs
CPT/HCPCS: 71046-TC-FY; 71101-TC-RT-FY; 73030-TC-RT-FY; 99281-25

== ENCOUNTER 2019-06-12 20:11 | Inpatient (IN) | payer OTHER ==
[2019-06-12 20:16] VITALS: BMI 25.0
--- NOTE | 2019-06-12 20:30 | PDOC ---
History of Present Illness - General Chief Complaint: Dysphagia Stated Complaint: UNABLE TO SWALLOW Time Seen by Provider: 06/12/19 20:29 Past History - Past Medical History Allergies/Adverse Reactions: Allergies Allergy/AdvReac Type Severity Reaction Status Date / Time No Known Allergies Allergy Verified 06/12/19 20:16 Home Medications: Ambulatory Orders Amlodipine Besylate [Norvasc -] 5 mg PO DAILY 04/30/16 Glimepiride 2 mg PO DAILY 04/30/16 Losartan Potassium 100 mg PO DAILY 04/30/16 Pantoprazole Sodium 40 mg PO DAILY 04/30/16 Pantoprazole Sodium [Protonix -] 40 mg PO DAILY #30 tab 02/27/17 levoFLOXacin [Levaquin -] 500 mg PO DAILY #5 tablet 02/27/17 metroNIDAZOLE [Flagyl -] 500 mg PO Q8H #15 tablet 02/27/17 Anemia: No Asthma: No Cancer: No Cardiac Disorders: No CVA: No COPD: No CHF: No Dementia: No Diabetes: Yes GI Disorders: No Disorders: No HTN: Yes Hypercholesterolemia: Yes Liver Disease: No Seizures: No Thyroid Disease: No - Surgical History Appendectomy: Yes - Immunization History Immunization Up to Date: Yes - Psycho Social/Smoking Cessation Hx Smoking History: Never smoked Hx Alcohol Use: Yes (socially) Drug/Substance Use Hx: No Substance Use Type: Alcohol *Physical Exam - Vital Signs Last Vital Signs Temp Pulse Resp BP Pulse Ox 97.7 F 74 18 173/70 H 96 06/12/19 20:14 06/12/19 20:14 06/12/19 20:14 06/12/19 20:14 06/12/19 20:14 ED Treatment Course - LABORATORY CBC & Chemistry Diagram: 06/12/19 21:30 06/12/19 21:30 Medical Decision Making - Medical Decision Making 06/12/19 21:29 HPI: 88yo M hx NIDDM, HTN, HLD, GERD, colon polyp, and hernia presents from home c/o dysphagia to solids and liquids of acute onset this afternoon. Pt was in [facility] this AM, ate oatmeal and banana at 1100 without difficulty. A couple hours later , pt noticed acute onset inability to swallow saliva or liquids or solids, causing burping and spitting up, worsening. When he tries to drink water, he is able to swallow and feels like the water makes it to mid-neck region of esophagus before being blocked and coming back up. Denies recent ingestion of bones or meat. Denies choking. Denies hx similar sx or esophageal dysfunction. Denies drooling, difficult speaking, voice change, sore throat, feeling of something stuck in throat, fever, chills, fatigue, headache, dizziness, numbness /tingling, weakness, vision changes, shortness of breath, cough, chest pain, palpitations, leg swelling, abdominal pain, blood in stool, diarrhea, constipation, nausea, vomiting, dysuria, hematuria, confusion. PCP - Barry ROS: Constitutional: Negative for chills, fever, fatigue, diaphoresis. HENT: Negative for sore throat, rhinorrhea, congestion. Eyes: Negative for visual disturbance. Respiratory: Negative for shortness of breath, cough, and wheezing. Cardiovascular: Negative for chest pain, palpitations, and leg swelling. Gastrointestinal: Positive for burping and dysphagia. Negative for abdominal pain, blood in stool, constipation, diarrhea, nausea, and vomiting. Genitourinary: Negative for dysuria, flank pain, and hematuria. Musculoskeletal: Negative for myalgias, back pain, and neck pain. Skin: Negative for rash. Neurological: Negative for light-headedness, dizziness, vertigo, syncope, weakness, numbness and headaches. Psychiatric/Behavioral: Negative for behavioral problems and confusion. PE: Gen: Alert, NAD, uncomfortable-appearing, burping and spitting up HEENT: PERRL, EOMI, MMM, NCAT. No conjunctival pallor. Sclera are non-icteric. Oropharynx is clear. Spitting up saliva. CV: Regular rate and rhythm. No murmurs, rubs, or gallops. PULM: No resp distress. CTAB, no stridor, wheezes, rales, or rhonchi. ABD: soft, NT/ND, no rebound tenderness or guarding, no CVA tenderness. BACK: No TTP of c/t/l-spine. No step-offs or deformities. MSK: No bony deformities. 2+ pulses in all extremities. NEURO: AAOx3. PERRL. No gross CN deficits. Strength and sensation grossly intact throughout. EXTREMITIES: No cyanosis. No clubbing. No edema. No calf tenderness. PSYCH: Normal mood and thought pattern. SKIN: Warm and dry. Normal capillary refill. No rashes. No jaundice. MDM: 88yo M hx NIDDM, HTN, HLD, GERD, colon polyp, and hernia presents from home with dysphagia to solids and liquids of acute onset this afternoon. Hemodynamically stable, afebrile, spitting up saliva, no respiratory distress. Ddx: oropharyngeal vs esophageal obstruction, mechanical vs neuromuscular, ddx includes food impaction, obstruction, mass, achalasia, ELIZA, hypercontractile esophagus. Also consider GERD, esophagitis, hernia. No other neuro deficits concerning for stroke. No difficulty breathing or stridor concerning for airway obstruction. -CBC,CMP -CT neck w/IV contrast -Glucagon 1mg IV -GI consult -Monitor glucose -Dispo: pending w/u 06/12/19 23:40 Labs reviewed. No concening findings. CT neck shows esophageal dilation but does not go inferior enough to show entire esophagus. Order CT chest to evaluate further. Consult GI - gastroenterology nurse practitioner Dr Villegas called. 06/13/19 00:43 CT chest reviewed: masslike focus in region of GEJ, possibly food impaction, which results in proximal esophageal dilatation with air-fluid level. Soft tissue mass less likely, direct visualization recommended. Likely chronic compression deformity L1. Spoke with GI - admit, keep upright, scope in AM. Discussed with pt, amenable to scope. 06/13/19 01:[address] Villegas again, decided to scope now, admit, requested I call nursing motel food service supervisor to get team called in. Called nursing motel food service supervisor and informed. Microblogged hospitalist for admission. EKG ordered for admission. NPO, IVF. 06/13/19 01:[address] Huggins. Discharge - Discharge Information Problems reviewed: Yes Clinical Impression/Diagnosis: Dysphagia Condition: Fair - Admission Yes - Follow up/Referral Referrals: Saroj Reddy MD [Primary Care Provider] - - Patient Discharge Instructions - Post Discharge Activity
--- NOTE | 2019-06-12 21:43 | PDOC ---
Documentation entered by Nicole Whipple SCRIBE, acting as scribe for Danyel Cheng MD. Danyel Cheng MD: This documentation has been prepared by the Sarabjit webster Xhesika, SCRIBE, under my direction and personally reviewed by me in its entirety. I confirm that the documentation accurately reflects all work, treatment, procedures, and medical decision making performed by me. Attending Attestation - Resident Resident Name: Heidi Browning - ED Attending Attestation I have performed the following: I have examined & evaluated the patient, The case was reviewed & discussed with the resident, I agree w/resident's findings & plan, Exceptions are as noted - HPI HPI: 06/12/19 20:59 The patient is an 88 year old male with a significant PMH of HTN, HLD, and DM who presents to the emergency department for difficulty swallowing today. The patient notes he ate oatmeal at 11am. He tolerated that well, but since then, he has not been able to swallow foods or liquids, stating that it feels like it gets caught fpc down his throat and comes back up. The patient denies chest pain, shortness of breath, headache and dizziness. Denies fever, chills, cough, nausea, vomiting, diarrhea and constipation. Allergies: NKDA - Physicial Exam PE: 06/12/19 21:00 GENERAL: Awake, alert, and fully oriented, in no acute distress. HEAD: No signs of trauma EYES: PERRLA, EOMI, sclera anicteric, conjunctiva clear ENT: Auricles normal inspection, hearing grossly normal, nares patent, oropharynx clear without exudates. Moist mucosa NECK: Nontender, no stepoffs, Normal ROM, supple, no lymphadenopathy, JVD, or masses LUNGS: Breath sounds equal, clear to auscultation bilaterally. No wheezes, and no crackles HEART: Regular rate and rhythm, normal S1 and S2, no murmurs, rubs or gallops ABDOMEN: Soft, nontender, normoactive bowel sounds. No guarding, no rebound. No masses EXTREMITIES: Normal range of motion, no edema. No clubbing or cyanosis. No cords, erythema, or tenderness NEUROLOGICAL: Cranial nerves II through XII intact. 5/5 strength and sensation in all extremities, Normal speech, normal gait, normal cerebellar function SKIN: Warm, Dry, normal turgor, no rashes or lesions noted. - Medical Decision Making 06/12/19 21:44 88 M with dysphagia, unable to tolerate solids and fluids. Non-focal neuro exam , no evidence of CVA. - Labs - CT neck w/ contrast to r/o mechanical obstruction - GI c/s 06/13/19 01:03 CT shows mass-like obstruction and dilated esophagus, possible food impaction Dr. Villegas consulted, will come in to evaluate pt 06/13/19 02:17 Dr. Villegas to perform EGD Pt admitted to hospitalist
[2019-06-12 21:55] LABS: BASO % 0.8 % (0-2.0); EOS % 1.1 % (0-4.5); HEMATOCRIT 43.5 % (35.4-49); HEMOGLOBIN 14.7 GM/dL (11.7-16.9); LYMPH % 23.7 % (8-40); MCH 32.9 pg (25.7-33.7); MCHC 33.8 g/dl (32.0-35.9); MEAN CELL VOLUME 97.4 fl (80-96); MEAN PLT VOLUME 8.4 fl (7.5-11.1); NEUT % 62.4 % (42.8-82.8); PLATELET COUNT 336 K/MM3 (134-434); RBC 4.47 M/mm3 (4.00-5.60); RDW 12.6 % (11.9-15.9); WHITE BLOOD COUNT 8.5 K/mm3 (4.0-10.0)
[2019-06-12] MEDS ORDERED: GLUCAGON 1 MG KIT IVPUSH ONE (22:14)
[2019-06-12] MEDS ORDERED: GlUCAGON HUMAN RECOMBINANT 1 MG/VIAL ONE (22:16)
[2019-06-12 22:20] LABS: BILIRUBIN,TOTAL 0.6 mg/dL (0.2-1); BLOOD UREA NITROGEN 15.1 mg/dL (7-18); CALCIUM 9.9 mg/dL (8.5-10.1); CREATININE 0.9 mg/dL (0.55-1.3); POTASSIUM 4.3 mmol/L (3.5-5.1)
[2019-06-13] MEDS ORDERED: SODIUM CHLORIDE 0.9% 500 ML INFUS.BAG IV ONE (01:14)
--- NOTE | 2019-06-13 01:46 | CON.GI ---
Consult Consult Specialty:: Gastroenterology ( covering Dr Obregon) Referred by:: Dr Heidi Menchaca Reason for Consultation:: Food impaction - History of Present Illness Chief Complaint: Can't swallow anything History of Present Illness: 88M developed esophageal obstruction after eating oatmeal, crackers and a bannana at 11AM. He has not been able to swallow anything since then and has been spitting up his oral secretions. This history was obtained using [employer] rn new graduateNimesh # [id number]. Myles has had intermittent dysphagia for solids for several months but has never had an EGD. His GI physician is Dr Obregon who has performed multiple colonoscopies to remove colon polyps. His PMD is Dr. Saroj Woods. - History Source History Provided By: Patient Limitations to Obtaining History: Language Barrier - Past Medical History Cardio/Vascular: Yes: HTN, Hyperlipdemia Gastrointestinal: Yes: Other (colonoscopic polypectomies with Dr Obregon, ? ischemic colitis with bleeding 2017) Renal/: Yes: Renal Calculi Musculoskeletal: Yes: Other (lumbar compression fracture) Endocrine: Yes: Diabetes Mellitus - Past Surgical History Past Surgical History: Yes: Appendectomy - Alcohol/Substance Use Hx Alcohol Use: Yes (socially) - Smoking History Smoking history: Never smoked - Social History Usual Living Arrangement: With Spouse ADL: Independent Place of : Other ([place]) Came to [place]year[place] 1964 Home Medications - Allergies Allergies/Adverse Reactions: Allergies Allergy/AdvReac Type Severity Reaction Status Date / Time No Known Allergies Allergy Verified 06/12/19 20:16 - Home Medications Home Medications: Ambulatory Orders Glimepiride 2 mg PO DAILY 04/30/16 Losartan Potassium 100 mg PO DAILY 04/30/16 Pantoprazole Sodium [Protonix -] 40 mg PO DAILY #30 tab 02/27/17 Aspirin 81 mg PO DAILY 06/13/19 metFORMIN HCL [Metformin HCl] 850 mg PO DAILY 06/13/19 Family Medical History Family History: Unable to Obtain Review of Systems Unable to obtain ROS, reason: language barrier Physical Exam-GI Vital Signs: Vital Signs Temperature 97.7 F 06/12/19 20:14 Pulse Rate 74 06/12/19 20:14 Respiratory Rate 18 06/12/19 20:14 Blood Pressure 173/70 H 06/12/19 20:14 O2 Sat by Pulse Oximetry (%) 96 06/12/19 20:14 CBC,CMP WBC 8.5 K/mm3 (4.0-10.0) 06/12/19 21:30 RBC 4.47 M/mm3 (4.00-5.60) 06/12/19 21:30 Hgb 14.7 GM/dL (11.7-16.9) 06/12/19 21:30 Hct 43.5 % (35.4-49) 06/12/19 21:30 MCV 97.4 fl (80-96) H 06/12/19 21:30 MCH 32.9 pg (25.7-33.7) 06/12/19 21: MCHC 33.8 g/dl (32.0-35.9) 06/12/19 21: RDW 12.6 % (11.9-15.9) 06/12/19 21: Plt Count 336 K/MM3 (134-434) D 06/12/19 21:30 MPV 8.4 fl (7.5-11.1) 06/12/19 21:30 Absolute Neuts (auto) 5.3 K/mm3 (1.5-8.0) 06/12/19 21:30 Neutrophils % 62.4 % (42.8-82.8) 06/12/19 21: Lymphocytes % 23.7 % (8-40) 06/12/19 21:30 Monocytes % 12.0 % (3.8-10.2) H 06/12/19 21: Eosinophils % 1.1 % (0-4.5) 06/12/19: Basophils % 0.8 % (0-2.0) 06/12/19 21:30 Nucleated RBC % 0 % (0-0) 06/12/19 21:30 Sodium 140 mmol/L (136-145) 06/12/19 21:30 Potassium 4.3 mmol/L (3.5-5.1) 06/12/19 21:30 Chloride 103 mmol/L (98-107) 06/12/19 21: Carbon Dioxide 29 mmol/L (21-32) 06/12/19 21:30 Anion Gap 7 MMOL/L (8-16) L 06/12/19 21:30 BUN 15.1 mg/dL (7-18) 06/12/19 21:30 Creatinine 0.9 mg/dL (0.55-1.3) 06/12/19 21:30 Est GFR (CKD-EPI)AfAm 89.32 06/12/19 21:30 Est GFR (CKD-EPI)NonAf 77.06 06/12/19 21:30 Random Glucose 131 mg/dL (74-106) H 06/12/19 21:30 Calcium 9.9 mg/dL (8.5-10.1) 06/12/19 21:30 Total Bilirubin 0.6 mg/dL (0.2-1) 06/12/19 21:30 AST 11 U/L (15-37) L 06/12/19 21:30 ALT 19 U/L (13-61) 06/12/19 21:30 Alkaline Phosphatase 33 U/L (45-117) L 06/12/19 21:30 Total Protein 7.0 g/dl (6.4-8.2) 06/12/19 21:30 Albumin 4.0 g/dl (3.4-5.0) 06/12/19 21:30 Constitutional: Yes: Anxious Eyes: Yes: Conjunctiva Clear HENT: Yes: Atraumatic Neck: Yes: Trachea Midline Cardiovascular: Yes: Regular Rate and Rhythm Respiratory: Yes: CTA Bilaterally Gastrointestinal Inspection: Yes: Scars (RLQ incision) ...Auscultate: Yes: Normoactive Bowel Sounds ...Palpate: Yes: Soft, Other (nontender) ...Rectal Exam: Yes: Deferred Labs: CBC, BMP 06/12/19 21:30 06/12/19 21:30 Problem List - Problems (1) Esophageal obstruction due to food impaction Code(s): K22.2 - ESOPHAGEAL OBSTRUCTION; T18.128A - FOOD IN ESOPHAGUS CAUSING OTHER INJURY, INITIAL ENCOUNTER (2) Food impaction of esophagus Code(s): T18.128A - FOOD IN ESOPHAGUS CAUSING OTHER INJURY, INITIAL ENCOUNTER (3) History of colonic polyps Code(s): Z86.010 - PERSONAL HISTORY OF COLONIC POLYPS (4) Dysphagia Code(s): R13.10 - DYSPHAGIA, UNSPECIFIED (5) Diabetes mellitus Code(s): E11.9 - TYPE 2 DIABETES MELLITUS WITHOUT COMPLICATIONS Qualifiers: Diabetes mellitus type: type 2 (6) HTN (hypertension) Code(s): I10 - ESSENTIAL (PRIMARY) HYPERTENSION Qualifiers: Hypertension type: essential hypertension Qualified Code(s): I10 - Essential (primary) hypertension Assessment/Plan Assessment: - Esophageal food impaction with h/o intermittent solid food dysphagia suggests a Schatzki ring but an underlying esophageal reflux or malignant stricture, achalasia or eosinophilic esophagitis cannot be excluded. - Personal h/o colon polyps Plan: -- I have advised Myles to undergo an EGD to relieve his esophageal obstruction using the [employer] house father. I informed him of the risk for such complications as aspiration, hemorrhage and perforation that could require surgery and/or transfusions. He granted an informed consent. I await the concert pianist team and do the EGD NEREYDA. Dr Obregon will return on 06/14
--- NOTE | 2019-06-13 02:39 | PN ---
Teaching Attending Note Name of Resident: Shila Duke ATTENDING PHYSICIAN STATEMENT I saw and evaluated the patient. I reviewed the resident's note and discussed the case with the resident. I agree with the resident's findings and plan as documented. SUBJECTIVE: Patient 88 year old man with PMH of NIDDM, HTN, HLD, GERD, Rectal bleeding, Colon polyp and Hernia presents with complaint of dysphagia to solids and liquids of acute onset this afternoon. Says he ate oatmeal, crackers and banana at 11:00 am without difficulty. A couple of hours later, patient noticed acute onset of inability to swallow saliva, liquids or solids, causing burping and spitting up. When he tries to drink water, he is able to swallow and feels like the water makes it to mid-neck region of esophagus before being blocked and coming back up. Denies recent ingestion of bones or meat. Has had solid food dysphagia for months but never had EGD. Has had colonoscopy with polyp removal. Denies choking , esophageal dysfunction, drooling, difficult speaking, voice change, sore throat, fever, chills, fatigue, headache, dizziness, numbness, tingling, weakness, vision changes, shortness of breath, cough, chest pain, palpitations, leg swelling, abdominal pain, blood in stool, diarrhea, constipation, nausea, vomiting, dysuria, hematuria or confusion. Denies tobacco, alcohol or illicit drug use. OBJECTIVE: Alert Vital Signs Period Temp Pulse Resp BP Sys/Phillips Pulse Ox Last 24 Hr 97.7 F 74-80 18-18 173-195/70-88 96-97 HEENT: No Jaundice, eye redness or discharge, PERRLA, EOMI. Normocephalic, atraumatic. External ears are normal and hearing is grossly intact. No nasal discharge. Neck: Supple, nontender. No palpable adenopathy or thyromegaly. No JVD Chest: Good effort. Clear to auscultation and percussion. Heart: Regular. No S3, rub or murmur Abdomen: Not distended, soft, nontender and no HSM. No rebound or guarding. Normal bowel sounds. Ext: Peripheral pulses intact. No leg edema. Skin: Warm and dry. No petechiae, rash or ecchymosis. Neuro: Alert. Oriented x3. CN 2-12 grossly intact. Sensation grossly intact in all four extremities and DTR are symmetric. Psych: Appropriate mood and affect. Good insight. Home Medications Medication Instructions Recorded Glimepiride 2 mg PO DAILY 04/30/16 Losartan Potassium 100 mg PO DAILY 04/30/16 Pantoprazole Sodium [Protonix -] 40 mg PO DAILY #30 tab 02/27/17 Aspirin 81 mg PO DAILY 06/13/19 metFORMIN HCL [Metformin HCl] 850 mg PO DAILY 06/13/19 Abnormal Lab Results 06/12/19 06/12/19 21:30 21:30 MCV 97.4 H Monocytes % 12.0 H Anion Gap 7 L Random Glucose 131 H AST 11 L Alkaline Phosphatase 33 L ASSESSMENT AND PLAN: 1. Esophageal food impaction/Dysphagia - CT of chest shows mass-like obstruction and dilated esophagus, possible food impaction. Patient evaluated by GI specialist in the ER and getting EGD. Received Glucagon 1 mg IV and IV NS in the ER. EKG and urinalysis pending. Post EGD will implement GI securities consultant's care plan. Will continue comprehensive care for all of patients comorbid conditions. 2. DM For now, we will hold the home diabetes drugs and implement sliding scale insulin regimen. Provide comprehensive diabetes care with patient teaching and counseling about the importance of adherence to prescribed diabetes regimen, euglycemia, eye care and foot care. 3. Hypertension - Restart suitable outpatient antihypertensive drugs when clinically appropriate. Revise regimen to ensure [id number] excellent BP control and juvenile counselor patient on the injurious effects of uncontrolled hypertension. Nonpharmacologic measures to control hypertension like weight loss , salt restriction and exercise discussed. Importance of adherence to treatment regimen and attainment of normotension emphasized. 4. DVT prophylaxis - Lovenox 40 mg SQ q 24 hours. 5. Advance directives - Full code
[2019-06-13] MEDS ORDERED: SEVOFLURANE 250 ML BTL ONE (02:51)
--- NOTE | 2019-06-13 04:06 | PN ---
Progress Note (short form) - Note Progress Note: GI Procedure Note: Please see EGD report that I placed into the chart. A very large food impaction was rmoeved form be esophagus. Reflux esophagitis, a smal sliding hiatal hernia and duodenal bulb ulcers were found but no overt tight obstruction was seen. Myles will need an esophagram to exclude a stricture and Schatzki ring. Findings were discussed with his . Will start with clear liquids. Will need antibiotics as I suspect that he aspirated earlier in the day given the completeness of his obstruction by food. Dr Obregon will return on Friday to assume his GI care. His PMD is at [facility] so will need to admit to the hospitalist service. Problem List - Problems (1) Esophageal obstruction due to food impaction Code(s): K22.2 - ESOPHAGEAL OBSTRUCTION; T18.128A - FOOD IN ESOPHAGUS CAUSING OTHER INJURY, INITIAL ENCOUNTER (2) Food impaction of esophagus Code(s): T18.128A - FOOD IN ESOPHAGUS CAUSING OTHER INJURY, INITIAL ENCOUNTER (3) History of colonic polyps Code(s): Z86.010 - PERSONAL HISTORY OF COLONIC POLYPS (4) Dysphagia Code(s): R13.10 - DYSPHAGIA, UNSPECIFIED (5) Diabetes mellitus Code(s): E11.9 - TYPE 2 DIABETES MELLITUS WITHOUT COMPLICATIONS Qualifiers: Diabetes mellitus type: type 2 (6) HTN (hypertension) Code(s): I10 - ESSENTIAL (PRIMARY) HYPERTENSION Qualifiers: Hypertension type: essential hypertension Qualified Code(s): I10 - Essential (primary) hypertension
[2019-06-13] MEDS ORDERED: MAG HYDROX/AL HYDROX/SIMETH 30 ML UNIT-DOSE CUP PO PRN (04:08)
[2019-06-13] MEDS ORDERED: DEXTROSE 5%-0.45% SALINE 1,000 ML IV SCH (04:15)
[2019-06-13] MEDS: INSULIN SLIDING SCALE (NOVOLOG) 1 VIAL SQ SCH ×2 (06:50→16:29)
[2019-06-13] MEDS ORDERED: GLIMEPIRIDE 2 MG TABLET (FP) PO SCH (07:00)
--- NOTE | 2019-06-13 07:23 | HP ---
CHIEF COMPLAINT: PCP: Dr. Reddy HISTORY OF PRESENT ILLNESS: 88 y/o/m with PMHx of NIDDM, HTN, HLD, GERD, colon polyp, and hernia presents from home with c/o dysphagia to solids and liquids of acute onset this afternoon. Patient had oatmeal and a banana at noon without issues but afterwards he noticed that he was having difficulty swallowing liquids and solids. Patient denied any ingestion of bones or meat. Patient seen s/p EGD and stated that he feels better. Complains of mild throat discomfort due to the EGD but otherwise feels that his swallowing has improved and would like to eat. Denies chest pain, abd pain, headache, N/V/D, fever, chills, coughs. ER course was notable for: (1) CT neck showing esophageal dilation but does not go inferior enough to show entire esophagus (2) CT chest reviewed: masslike focus in region of GEJ, possibly food impaction , which results in proximal esophageal dilatation with air-fluid level. Soft tissue mass less likely, direct visualization recommended. Likely chronic compression deformity L1. (3) Dr. Villegas called in, EGD performed. PAST MEDICAL HISTORY: NIDDM, HTN, HLD, GERD, colon polyp, and hernia Allergies No Known Allergies Allergy (Verified 06/12/19 20:16) HOME MEDICATIONS: Home Medications Medication Instructions Recorded Glimepiride 2 mg PO DAILY 04/30/16 Losartan Potassium 100 mg PO DAILY 04/30/16 Pantoprazole Sodium [Protonix -] 40 mg PO DAILY #30 tab 02/27/17 Aspirin 81 mg PO DAILY 06/13/19 metFORMIN HCL [Metformin HCl] 850 mg PO DAILY 06/13/19 REVIEW OF SYSTEMS as per HPI PHYSICAL EXAMINATION Vital Signs - 24 hr 06/12/19 06/13/19 06/13/19 20:14 02:02 03:50 Temperature 97.7 F 98.2 F Pulse Rate 74 80 Pulse Rate [ 80 Right Radial] Respiratory 18 18 19 Rate Blood Pressure 173/70 H 131/72 Blood Pressure 195/88 H [Left Arm] O2 Sat by Pulse 96 97 90 L Oximetry (%) 06/13/19 06/13/19 06/13/19 04:00 04:15 04:30 Temperature Pulse Rate 74 73 67 Pulse Rate [ Right Radial] Respiratory 24 H 20 14 Rate Blood Pressure 135/68 142/71 133/64 Blood Pressure [Left Arm] O2 Sat by Pulse 94 L 97 95 Oximetry (%) 06/13/19 04:45 Temperature 16 F L Pulse Rate Pulse Rate [ Right Radial] Respiratory 70 H Rate Blood Pressure 150/66 Blood Pressure [Left Arm] O2 Sat by Pulse 96 Oximetry (%) GENERAL: Awake, alert, and fully oriented, in no acute distress. HEAD: Normal with no signs of trauma. EYES: PERRL, EOMI EARS, NOSE, THROAT: dry mucous membranes NECK: trachea midline, supple LUNGS: Breath sounds equal, clear to auscultation bilaterally. No wheezes, and no crackles. No accessory muscle use. HEART: Regular rate and rhythm, normal S1 and S2 without murmur, rub or gallop. ABDOMEN: Soft, nontender, not distended, normoactive bowel sounds, no guarding, no rebound, no masses MUSCULOSKELETAL: No bony deformities or tenderness. EXTREMITIES: 2+ pulses, warm, well-perfused. No calf tenderness. No peripheral edema. NEUROLOGICAL: normal speech, gait not observed PSYCHIATRIC: Cooperative. Good eye contact. SKIN: Warm, dry Laboratory Results - last 24 hr 06/12/19 06/12/19 06/12/19 21:30 21:30 21:30 WBC 8.5 RBC 4.47 Hgb 14.7 Hct 43.5 MCV 97.4 H MCH 32.9 MCHC 33.8 RDW 12.6 Plt Count 336 D MPV 8.4 Absolute Neuts (auto) 5.3 Neutrophils % 62.4 Lymphocytes % 23.7 Monocytes % 12.0 H Eosinophils % 1.1 Basophils % 0.8 Nucleated RBC % 0 PTT (Actin FS) 30.8 Sodium 140 Potassium 4.3 Chloride 103 Carbon Dioxide 29 Anion Gap 7 L BUN 15.1 Creatinine 0.9 Est GFR (CKD-EPI)AfAm 89.32 Est GFR (CKD-EPI)NonAf 77.06 POC Glucometer Random Glucose 131 H Calcium 9.9 Total Bilirubin 0.6 AST 11 L ALT 19 Alkaline Phosphatase 33 L Total Protein 7.0 Albumin 4.0 06/13/19 06:48 WBC RBC Hgb Hct MCV MCH MCHC RDW Plt Count MPV Absolute Neuts (auto) Neutrophils % Lymphocytes % Monocytes % Eosinophils % Basophils % Nucleated RBC % PTT (Actin FS) Sodium Potassium Chloride Carbon Dioxide Anion Gap BUN Creatinine Est GFR (CKD-EPI)AfAm Est GFR (CKD-EPI)NonAf POC Glucometer 164 Random Glucose Calcium Total Bilirubin AST ALT Alkaline Phosphatase Total Protein Albumin ASSESSMENT/PLAN: 88 y/o/m with PMHx of NIDDM, HTN, HLD, GERD, colon polyp, and hernia presents from home with c/o dysphagia to solids and liquids of acute onset. CT findings showing masslike focus in region of GEJ, possibly food impaction, requiring EGD. EGD performed by Dr. Villegas. #Esophageal food impaction/dysphagia - CT neck showing esophageal dilation but does not go inferior enough to show entire esophagus - CT chest reviewed: masslike focus in region of GEJ, possibly food impaction, which results in proximal esophageal dilatation with air-fluid level. Soft tissue mass less likely, direct visualization recommended. Likely chronic compression deformity L1 - GI consulted, came in for urgent EGD - Protonix 40mg BID - started on Cefazolin as per ID for likely aspiration of esophageal contents - Gaviscon 30cc q4h prn - EGD: food bolus fragmented and partially removed, residual food in esophagus pushed into the stomach, small sliding hiatal hernia identified, multiple medium sized non-bleeding, linear, shallow, and clean based reflux ulcers were found in the mid esophagus and distal esophagus. - Esophagram needed to rule out overt stricture or Schatzki ring #DM - ISS - BGMs - hold home medications #HTN - continue home medications when appropriate #Prophylaxis - Lovenox 40mg #FEN - started on clear liquid diet, advance as tolerated - encourage PO intake - monitor and replete lytes as needed #Disposition - admitted to med surg - will need Esophagram to rule out strictures or Schatzki ring Visit type - Emergency Visit Emergency Visit: Yes ED Registration Date: 06/13/19 Care time: The patient presented to the Emergency Department on the above date and was hospitalized for further evaluation of their emergent condition. - New Patient This patient is new to me today: Yes Date on this admission: 06/13/19 - Critical Care Critical Care patient: No ATTENDING PHYSICIAN STATEMENT I saw and evaluated the patient. I reviewed the resident's note and discussed the case with the resident. I agree with the resident's findings and plan as documented. SUBJECTIVE: OBJECTIVE: ASSESSMENT AND PLAN:
[2019-06-13] MEDS ORDERED: PT OWN MED DRAWER 7, Y5N ONE (09:36)
[2019-06-13] MEDS: PANTOPRAZOLE SODIUM 40 MG VIAL IVPUSH SCH ×2 (09:47→22:32)
[2019-06-13] MEDS: ENOXAPARIN NA (PORCINE) 40 MG/0.4 ML DISP.SYRIN SQ SCH (09:47)
[2019-06-13] MEDS: LOSARTAN POTASSIUM 50 MG TABLET (FP) PO SCH (09:47)
[2019-06-13] MEDS ORDERED: CEFAZOLIN 1 GM/D5W 1 GM/50 ML BAG IVPB SCH (10:00)
[2019-06-13] MEDS ORDERED: PNEUMOC 13-VAL CONJ-DIP CRM/PF 0.5 ML DISP.SYRIN IM ONE (10:00)
[2019-06-13] MEDS ORDERED: ceFAZolin SODIUM 1 GM VIAL ONE ×2 (10:57→16:53)
[2019-06-13] MEDS ORDERED: DEXTROSE 5%-WATER - 50 ML IVPB ONE (10:57)
[2019-06-13] MEDS: CEFAZOLIN 1 GM in DEXTROSE 5%-WATER - 50 ML IVPB SCH ×2 (11:03→17:05)
--- NOTE | 2019-06-13 13:35 | PN.GI ---
GI Progress Note Subjective: GI Note: Denies dysphagia, chest pain or cough today. Has mild sore throat. Tolerating liquids. CXR revealed RLL atelectasis but no obvious aspiration pneumonia. EGD findings again explained; this time with his [place] speaking nurse serving as the dental floss packer. - Objective Vital Signs: Vital Signs Temperature 97.5 F L 06/13/19 09:44 Pulse Rate 75 06/13/19 09:44 Respiratory Rate 18 06/13/19 09:44 Blood Pressure 135/89 06/13/19 09:44 O2 Sat by Pulse Oximetry (%) 96 06/13/19 09:00 Constitutional: No Distress Cardiovascular: Yes: Regular Rate and Rhythm Respiratory: Yes: CTA Bilaterally ...Auscultate: Yes: Normoactive Bowel Sounds ...Palpate: Yes: Soft, Other (nontender) Labs: CBC, BMP 06/12/19 21:30 06/12/19 21:30 Assessment/Plan Assessment: - Esophageal food impaction relieved during overnight EGD. - Hiatal hernia with severe GERD - Duodenal ulcers - Personal h/o colon polyps Plan: -- I have advised Myles to stay until an esophagram can be obtained to determine whether or not he needs to undergo an additional EGD to dilate a stricture or Schatzki ring that may not have been endoscopically appreciable and to exclude achalasia as his esophagus was somewhat dilated and flaccid. -- Trial of soft diet -- Continue PPI and antibiotic empirically Dr Obregon will assume GI care on 06/14 Problem List - Problems (1) Food impaction of esophagus Code(s): T18.128A - FOOD IN ESOPHAGUS CAUSING OTHER INJURY, INITIAL ENCOUNTER (2) Duodenal ulcer disease Code(s): K26.9 - DUODENAL ULCER, UNSP ACUTE OR CHRONIC, W/O HEMOR OR PERF (3) Hiatal hernia with GERD and esophagitis Code(s): K44.9 - DIAPHRAGMATIC HERNIA WITHOUT OBSTRUCTION OR GANGRENE; K21.0 - GASTRO-ESOPHAGEAL REFLUX DISEASE WITH ESOPHAGITIS (4) Esophageal obstruction due to food impaction Code(s): K22.2 - ESOPHAGEAL OBSTRUCTION; T18.128A - FOOD IN ESOPHAGUS CAUSING OTHER INJURY, INITIAL ENCOUNTER (5) Dysphagia Code(s): R13.10 - DYSPHAGIA, UNSPECIFIED (6) Diabetes mellitus Code(s): E11.9 - TYPE 2 DIABETES MELLITUS WITHOUT COMPLICATIONS Qualifiers: Diabetes mellitus type: type 2 (7) HTN (hypertension) Code(s): I10 - ESSENTIAL (PRIMARY) HYPERTENSION Qualifiers: Hypertension type: essential hypertension Qualified Code(s): I10 - Essential (primary) hypertension (8) History of colonic polyps Code(s): Z86.010 - PERSONAL HISTORY OF COLONIC POLYPS
[2019-06-13] MEDS ORDERED: DEXTROSE 5%-WATER - 100 ML IVPB ONE (16:53)
--- NOTE | 2019-06-13 18:31 | EKG ---
Test Reason : Blood Pressure : / mmHG Vent. Rate : 079 BPM Atrial Rate : 079 BPM P-R Int : 214 ms QRS Dur : 100 ms QT Int : 380 ms P-R-T Axes : 053 -24 040 degrees QTc Int : 435 ms SINUS RHYTHM WITH 1ST DEGREE A-V BLOCK POSSIBLE ANTERIOR INFARCT (CITED ON OR BEFORE 25-FEB-2017) ABNORMAL ECG WHEN COMPARED WITH ECG OF 25-FEB-2017 09:09, QUESTIONABLE CHANGE IN INITIAL FORCES OF ANTERIOR LEADS Confirmed by SUSAN PRESSLEY MD ([id number]) on 06/13/2019 6:31:14 PM Referred By: Confirmed By:SUSAN PRESSLEY MD
--- NOTE | 2019-06-13 19:12 | PN ---
Progress Note (short form) - Note Progress Note: events noted no complaints tolerating liquids Vital Signs - 24 hr 06/12/19 06/13/19 06/13/19 20:14 02:02 03:50 Temperature 97.7 F 98.2 F Pulse Rate 74 80 Pulse Rate [ 80 Right Radial] Respiratory 18 18 19 Rate Blood Pressure 173/70 H 131/72 Blood Pressure 195/88 H [Left Arm] O2 Sat by Pulse 96 97 90 L Oximetry (%) 06/13/19 06/13/19 06/13/19 04:00 04:15 04:30 Temperature Pulse Rate 74 73 67 Pulse Rate [ Right Radial] Respiratory 24 H 20 14 Rate Blood Pressure 135/68 142/71 133/64 Blood Pressure [Left Arm] O2 Sat by Pulse 94 L 97 95 Oximetry (%) 06/13/19 06/13/19 06/13/19 04:45 05:22 09:00 Temperature 16 F L 97.9 F Pulse Rate 68 Pulse Rate [ Right Radial] Respiratory 70 H 18 Rate Blood Pressure 150/66 139/76 Blood Pressure [Left Arm] O2 Sat by Pulse 96 96 96 Oximetry (%) 06/13/19 06/13/19 06/13/19 09:44 15:00 18:25 Temperature 97.5 F L 97.9 F 97.7 F Pulse Rate 75 63 65 Pulse Rate [ Right Radial] Respiratory 18 18 19 Rate Blood Pressure 135/89 126/76 142/63 Blood Pressure [Left Arm] O2 Sat by Pulse Oximetry (%) Current Medications Generic Name Dose Route Start Last Admin Trade Name Freq PRN Reason Stop Dose Admin Al Hydroxide/Mg Hydroxide 30 ml 06/13/19 04:08 Mylanta Oral Suspension - PO Q6H PRN DYSPEPSIA Enoxaparin Sodium 40 mg 06/13/19 10:00 06/13/19 09:47 Lovenox - SQ 40 mg DAILY TAMMIE Administration Cefazolin Sodium 1 gm/ 50 mls @ 100 mls/hr 06/13/19 10:30 06/13/19 17:05 Dextrose IVPB 100 mls/hr Q8H-IV TAMMIE Administration Insulin Aspart 1 vial 06/13/19 07:00 06/13/19 16:29 Novolog Vial Sliding Scale - SQ 2 unit BIDAC TAMMIE Administration Protocol Losartan Potassium 100 mg 06/13/19 10:00 06/13/19 09:47 Cozaar - PO 100 mg DAILY TAMMIE Administration Pantoprazole Sodium 40 mg 06/13/19 10:00 06/13/19 09:47 Protonix Iv IVPUSH 40 mg BID TAMMIE Administration Laboratory Results - last 24 hr 06/12/19 06/12/19 06/12/19 21:30 21:30 21:30 WBC 8.5 RBC 4.47 Hgb 14.7 Hct 43.5 MCV 97.4 H MCH 32.9 MCHC 33.8 RDW 12.6 Plt Count 336 D MPV 8.4 Absolute Neuts (auto) 5.3 Neutrophils % 62.4 Lymphocytes % 23.7 Monocytes % 12.0 H Eosinophils % 1.1 Basophils % 0.8 Nucleated RBC % 0 PTT (Actin FS) 30.8 Sodium 140 Potassium 4.3 Chloride 103 Carbon Dioxide 29 Anion Gap 7 L BUN 15.1 Creatinine 0.9 Est GFR (CKD-EPI)AfAm 89.32 Est GFR (CKD-EPI)NonAf 77.06 POC Glucometer Random Glucose 131 H Calcium 9.9 Total Bilirubin 0.6 AST 11 L ALT 19 Alkaline Phosphatase 33 L Total Protein 7.0 Albumin 4.0 06/13/19 06/13/19 06:48 16:26 WBC RBC Hgb Hct MCV MCH MCHC RDW Plt Count MPV Absolute Neuts (auto) Neutrophils % Lymphocytes % Monocytes % Eosinophils % Basophils % Nucleated RBC % PTT (Actin FS) Sodium Potassium Chloride Carbon Dioxide Anion Gap BUN Creatinine Est GFR (CKD-EPI)AfAm Est GFR (CKD-EPI)NonAf POC Glucometer 164 202 Random Glucose Calcium Total Bilirubin AST ALT Alkaline Phosphatase Total Protein Albumin S1S2 RRR Lungs clear Abd-soft,NT No edema Plan tolertaing liquids on PPI awaiting esophagogram Problem List - Problems (1) Dysphagia Code(s): R13.10 - DYSPHAGIA, UNSPECIFIED (2) Esophageal obstruction due to food impaction Code(s): K22.2 - ESOPHAGEAL OBSTRUCTION; T18.128A - FOOD IN ESOPHAGUS CAUSING OTHER INJURY, INITIAL ENCOUNTER (3) Food impaction of esophagus Code(s): T18.128A - FOOD IN ESOPHAGUS CAUSING OTHER INJURY, INITIAL ENCOUNTER
[2019-06-14] MEDS ORDERED: BENZOCAINE/MENTH/CETYLPYRD CL 1 EACH LOZENGE MM PRN (01:53)
[2019-06-14] MEDS ORDERED: DEXTROSE 5%-WATER - 50 ML IVPB ONE ×3 (02:15→17:29)
[2019-06-14] MEDS ORDERED: ceFAZolin SODIUM 1 GM VIAL ONE ×3 (02:15→17:29)
[2019-06-14] MEDS: CEFAZOLIN 1 GM in DEXTROSE 5%-WATER - 50 ML IVPB SCH ×3 (02:24→18:42)
[2019-06-14] MEDS: INSULIN SLIDING SCALE (NOVOLOG) 1 VIAL SQ SCH ×2 (06:40→18:49)
[2019-06-14 07:42] LABS: BASO % 0.4 % (0-2.0); EOS % 4.5 % (0-4.5); HEMATOCRIT 37.9 % (35.4-49); HEMOGLOBIN 12.8 GM/dL (11.7-16.9); MCH 32.8 pg (25.7-33.7); MCHC 33.8 g/dl (32.0-35.9); MEAN CELL VOLUME 97.1 fl (80-96); MEAN PLT VOLUME 8.2 fl (7.5-11.1); MONO % 14.3 % (3.8-10.2); NEUT % 56.8 % (42.8-82.8); PLATELET COUNT 269 K/MM3 (134-434); RBC 3.91 M/mm3 (4.00-5.60); RDW 12.7 % (11.9-15.9); WHITE BLOOD COUNT 6.6 K/mm3 (4.0-10.0)
[2019-06-14 08:07] LABS: ALBUMIN 3.2 g/dl (3.4-5.0); BILIRUBIN,TOTAL 0.9 mg/dL (0.2-1); BLOOD UREA NITROGEN 8.5 mg/dL (7-18); CREATININE 0.8 mg/dL (0.55-1.3); POTASSIUM 3.8 mmol/L (3.5-5.1); TOT PROT 5.7 g/dl (6.4-8.2)
--- NOTE | 2019-06-14 11:13 | PN ---
Progress Note (short form) - Note Progress Note: For Esophagogram today. Vital Signs Temp 98.7 F 06/14/19 06:39 Pulse 51 L 06/14/19 06:39 Resp 18 06/14/19 06:39 BP 119/50 L 06/14/19 06:39 Pulse Ox 96 06/13/19 21:00 Intake & Output 06/13/19 06/13/19 06/14/19 11:59 23:59 11:59 Intake Total 215 890 180 Output Total 475 300 Balance 215 415 -120 Weight 150 lb Intake: IV 75 450 D5-1/2Ns - 1,000 ml @ 75 450 mls/hr IV ASDIR TAMMIE Rx#: [id number] IVPB 200 Oral 140 240 180 Output: Urine 475 300 Void 475 300 Other: Voiding Method Urinal Urinal Urinal # Unmeasured Voids Void 2 Bowel Movement No No No Height 5 ft 5 in Body Mass Index (BMI) 25.0 Weight Measurement Method Standing Scale Active Medications Al Hydroxide/Mg Hydroxide (Mylanta Oral Suspension -) 30 ml PO Q6H PRN PRN Reason: DYSPEPSIA Benzocaine/Menthol (Cepacol Lozenge -) 1 each MM PRN PRN PRN Reason: SORE THROAT Enoxaparin Sodium (Lovenox -) 40 mg SQ DAILY [facility] Last Admin: 06/13/19 09:47 Dose: 40 mg Cefazolin Sodium 1 gm/ (Dextrose) 50 mls @ 100 mls/hr IVPB Q8H-IV [facility] Last Admin: 06/14/19 02:24 Dose: 100 mls/hr Insulin Aspart (Novolog Vial Sliding Scale -) 1 vial SQ BIDAC [facility]; Protocol Last Admin: 06/14/19 06:40 Dose: Not Given Losartan Potassium (Cozaar -) 100 mg PO DAILY [facility] Last Admin: 06/13/19 09:47 Dose: 100 mg Pantoprazole Sodium (Protonix Iv) 40 mg IVPUSH BID [facility] Last Admin: 06/13/19 22:32 Dose: 40 mg CBC, BMP 06/14/19 07:00 06/14/19 07:00 Problem List - Problems (1) Esophageal obstruction due to food impaction Code(s): K22.2 - ESOPHAGEAL OBSTRUCTION; T18.128A - FOOD IN ESOPHAGUS CAUSING OTHER INJURY, INITIAL ENCOUNTER
[2019-06-14] MEDS: LOSARTAN POTASSIUM 50 MG TABLET (FP) PO SCH (11:26)
[2019-06-14] MEDS: PANTOPRAZOLE SODIUM 40 MG VIAL IVPUSH SCH ×2 (11:27→22:37)
[2019-06-14] MEDS: ENOXAPARIN NA (PORCINE) 40 MG/0.4 ML DISP.SYRIN SQ SCH (11:28)
--- NOTE | 2019-06-14 16:57 | PN.GI ---
GI Progress Note Subjective: no nausea, vomiting, reviewed esophagram no obstruction,no abdominal pain tolerated diet - Objective Vital Signs: Vital Signs Temperature 98.2 F 06/14/19 14:37 Pulse Rate 70 06/14/19 14:37 Respiratory Rate 19 06/14/19 14:37 Blood Pressure 147/71 06/14/19 14:37 O2 Sat by Pulse Oximetry (%) 96 06/13/19 21:00 Constitutional: Well Nourished, Poor Hygeine HENT: Yes: Atraumatic Neck: Yes: Supple Cardiovascular: Yes: Regular Rate and Rhythm Respiratory: Yes: CTA Bilaterally ...Palpate: Yes: Soft. No: Firm/Rigid, Guarding, Hepatomegaly, Mass, Pulsatile Mass, Splenomegaly, Tenderness Labs: CBC, BMP 06/14/19 07:00 06/14/19 07:00 Problem List - Problems (1) Food impaction of esophagus Assessment/Plan: --resolved R> Pantoprazole 40mg daily ff-up in 3 weeks as an outpatient ok to discharge Code(s): T18.128A - FOOD IN ESOPHAGUS CAUSING OTHER INJURY, INITIAL ENCOUNTER
[2019-06-15] MEDS ORDERED: DEXTROSE 5%-WATER - 50 ML IVPB ONE ×2 (01:19→11:36)
[2019-06-15] MEDS ORDERED: ceFAZolin SODIUM 1 GM VIAL ONE ×2 (01:19→11:36)
[2019-06-15] MEDS: CEFAZOLIN 1 GM in DEXTROSE 5%-WATER - 50 ML IVPB SCH ×2 (01:50→11:39)
[2019-06-15 02:26] VITALS: TEMP 99.1
[2019-06-15] MEDS: INSULIN SLIDING SCALE (NOVOLOG) 1 VIAL SQ SCH (06:07)
[2019-06-15] MEDS: PANTOPRAZOLE SODIUM 40 MG VIAL IVPUSH SCH (11:37)
[2019-06-15] MEDS: LOSARTAN POTASSIUM 50 MG TABLET (FP) PO SCH (11:37)
[2019-06-15] MEDS: ENOXAPARIN NA (PORCINE) 40 MG/0.4 ML DISP.SYRIN SQ SCH (11:38)
--- NOTE | 2019-06-15 12:22 | DS ---
Physical Examination Vital Signs: Vital Signs Temperature 99.1 F 06/15/19 06:00 Pulse Rate 71 06/15/19 06:00 Respiratory Rate 18 06/15/19 06:00 Blood Pressure 122/66 06/15/19 06:00 O2 Sat by Pulse Oximetry (%) 94 L 06/14/19 21:00 Constitutional: Yes: No Distress, Calm Cardiovascular: Yes: Regular Rate and Rhythm Respiratory: Yes: CTA Bilaterally Gastrointestinal: Yes: Normal Bowel Sounds, Soft. No: Tenderness Edema: No Labs: CBC, BMP 06/14/19 07:00 06/14/19 07:00 Discharge Summary Problems reviewed: Yes Reason For Visit: FOOD IMPACTION OF ESOPHAGUS/DYSPHAGIA Current Active Problems Duodenal ulcer disease (Acute) Dysphagia (Acute) Esophageal obstruction due to food impaction (Acute) Food impaction of esophagus (Acute) Hiatal hernia with GERD and esophagitis (Acute) History of colonic polyps (Acute) Health Concerns: Admitted for food impaction and was emergently taken to endoscopy suite for disimpaction Started on Protonix BID empiric antibiotics for suspected aspiration CXR negative for pneumonia pt better esophagogram-- no stricture or schatzki ring tolerating soft diet stable for dc home Condition: Fair - Instructions Referrals: Saroj Reddy MD [Primary Care Provider] - Disposition: HOME - Home Medications Comprehensive Discharge Medication List: Ambulatory Orders Glimepiride 2 mg PO DAILY 04/30/16 Losartan Potassium 100 mg PO DAILY 04/30/16 Pantoprazole Sodium [Protonix -] 40 mg PO DAILY #30 tab 02/27/17 Aspirin 81 mg PO DAILY 06/13/19 metFORMIN HCL [Metformin HCl] 850 mg PO DAILY 06/13/19
[2019-06-15 15:14] VITALS: BP 146/56; PULSE 76
== END 2019-06-15 15:34 | disposition home or self-care (01) | DRG 395 ==
LOC: JER 20:11 → JERBED 06-13 00:43 → J5S 06-13 05:05
PROVIDERS: ADMIT Internal Medicine; ATTEND Internal Medicine
PROC: 0DC28ZZ Extirpation of Matter from Middle Esophagus, Via Natural or Artificial Opening Endoscopic (ICD-10-PCS; principal; 2019-06-13 02:27)
DX: T18.128A Food in esophagus causing other injury, initial encounter (principal); X58.XXXA Exposure to other specified factors, initial encounter; Y93.89 Activity, other specified; Y92.89 Other specified places as the place of occurrence of the external cause; Y99.9 Unspecified external cause status; K22.2 Esophageal obstruction; R13.10 Dysphagia, unspecified; E11.9 Type 2 diabetes mellitus without complications; I10 Essential (primary) hypertension; K44.9 Diaphragmatic hernia without obstruction or gangrene; K21.0 Gastro-esophageal reflux disease with esophagitis
CPT/HCPCS: 36415; 70491-TC; 71048-TC-FY; 71250-TC; 74220-TC-FY; 74240-TC-FY; 80048; 80053; 82962; 85025; 85730; 86140; 90670; 93005; 93010; 94760; 99283-25; Q9967

== ENCOUNTER 2019-07-26 10:06 | Emergency (ER) | payer OTHER ==
[2019-07-26 10:35] VITALS: BMI 25.0
--- NOTE | 2019-07-26 11:33 | PDOC ---
History of Present Illness - General Chief Complaint: Weakness Stated Complaint: CONGESTED/DIARRHEA Time Seen by Provider: 07/26/19 11:28 - History of Present Illness Initial Comments: 07/26/19 13:04 88 y/o M hx of NIDDM, HTN, HLD, GERD, presents to the ER with 3 days of cough and wheezing. cough is non-productive fevers and chills yesterday chest pain when he coughs denies pleuritic chest pain, nausea, vomiting. Endorses watery non-bloody diarrhea x4 today Past History - Past Medical History Allergies/Adverse Reactions: Allergies Allergy/AdvReac Type Severity Reaction Status Date / Time Penicillins Allergy Verified 07/26/19 10:35 Home Medications: Ambulatory Orders Glimepiride 2 mg PO DAILY 04/30/16 Losartan Potassium 100 mg PO DAILY 04/30/16 Aspirin 81 mg PO DAILY 06/13/19 metFORMIN HCL [Metformin HCl] 850 mg PO DAILY 06/13/19 Pantoprazole Sodium [Protonix -] 40 mg PO BID #60 tab 06/15/19 Azithromycin 250 mg PO DAILY #4 tablet 07/26/19 Anemia: No Asthma: No Cancer: No Cardiac Disorders: No CVA: No COPD: No CHF: No Dementia: No Diabetes: Yes GI Disorders: No Disorders: No HTN: Yes Hypercholesterolemia: Yes Liver Disease: No Seizures: No Thyroid Disease: No - Surgical History Appendectomy: Yes - Immunization History Immunization Up to Date: Yes - Psycho Social/Smoking Cessation Hx Smoking History: Never smoked Have you smoked in the past 12 months: No Information on smoking cessation initiated: No Hx Alcohol Use: No Drug/Substance Use Hx: No Substance Use Type: Alcohol Hx Substance Use Treatment: No *Physical Exam - Vital Signs Last Vital Signs Temp Pulse Resp BP Pulse Ox 98.3 F 82 18 125/64 94 L 07/26/19 10:30 07/26/19 10:30 07/26/19 10:30 07/26/19 10:30 07/26/19 10:30 - Physical Exam 07/26/19 13:07 GENERAL: Awake, alert, and fully oriented, in no acute distress HEAD: No signs of trauma, normocephalic, atraumatic EYES: PERRLA, EOMI, sclera anicteric, conjunctiva clear ENT: Auricles normal inspection, hearing grossly normal, nares patent, oropharynx clear without exudates. Moist mucosa NECK: Normal ROM, supple, no lymphadenopathy, JVD, or masses LUNGS: audible wheezing. expiratory wheezing on auscultation. speaking in full sentences HEART: Regular rate and rhythm, normal S1 and S2, no murmurs, rubs or gallops, peripheral pulses normal and equal bilaterally. ABDOMEN: Soft, nontender, normoactive bowel sounds. No guarding, no rebound. No masses EXTREMITIES : Normal inspection, Normal range of motion, no edema. No clubbing or cyanosis NEUROLOGICAL: Cranial nerves II through XII grossly intact. Normal speech, normal gait, no focal sensorimotor deficits SKIN: Warm, Dry, normal turgor, no rashes or lesions noted ED Treatment Course - LABORATORY CBC & Chemistry Diagram: 07/26/19 12:25 07/26/19 12:25 Medical Decision Making - Medical Decision Making 07/26/19 13:08 Workup: ekg, cbc, cmp, cardiac profile, portable chest x-ray Meds: duonebs, 500 cc bolus normal saline. 07/26/19 13:08 07/26/19 13:43 Pt wheezing improved after duonebs shivering on reassesment and feels warm to touch will get rectal temp. EKG NSR, anterior infarct age undetermined this finding aslos on EKG from 201807/26/19 13:46 07/26/19 15:31 CXR:No acute pathology appreciated pt able to ambulate with some assistance, O2 sat at 94% afterwards Pt usually at this saturation between 94-96% O2 07/26/19 15:39 Discharge - Discharge Information Problems reviewed: Yes Clinical Impression/Diagnosis: Wheezing, Cough Condition: Improved Disposition: HOME - Admission No - Additional Discharge Information Prescriptions: Azithromycin 250 mg PO DAILY #4 tablet - Follow up/Referral Referrals: Saroj Reddy MD [Primary Care Provider] - - Patient Discharge Instructions Patient Printed Discharge Instructions: DI for Cough -- Adult Additional Instructions: You were seen in the ER for a cough Please continue all antibiotics as directed until complete. Nutrition is important - eat small frequent meals. Get lots of rest and drink fluids. Call your Primary Care Doctor upon arrival home from the hospital and make a follow- up appointment in the next 2-3 days. If your cough worsens, you develop a fever , you develop shaking chills, a fast heartbeat, trouble breathing and/or feel you are are breathing much faster than usual, call your Primary Care Doctor or return to the ED. Make sure you wash your hands frequently. - Post Discharge Activity
[2019-07-26] MEDS ORDERED: SODIUM CHLORIDE 500 ML IV STA (12:12)
[2019-07-26] MEDS ORDERED: ALBUTEROL SO4 2.5/IPRATROPIUM 0.5 INH SOL 3 ML VIAL.NEB. NEB ONE ×2 (12:12→12:42)
[2019-07-26 12:48] LABS: BASO % 0.7 % (0-2.0); EOS % 0.4 % (0-4.5); HEMOGLOBIN 14.1 GM/dL (11.7-16.9); LYMPH % 22.4 % (8-40); MCH 32.5 pg (25.7-33.7); MCHC 33.6 g/dl (32.0-35.9); MEAN CELL VOLUME 96.5 fl (80-96); MEAN PLT VOLUME 8.5 fl (7.5-11.1); MONO % 27.9 % (3.8-10.2); NEUT % 48.6 % (42.8-82.8); PLATELET COUNT 253 K/MM3 (134-434); RBC 4.35 M/mm3 (4.00-5.60); RDW 13.1 % (11.9-15.9); WHITE BLOOD COUNT 4.8 K/mm3 (4.0-10.0)
[2019-07-26 13:32] LABS: ALBUMIN 3.7 g/dl (3.4-5.0); ALK PHOS 33 U/L (45-117); ANION GAP 8 MMOL/L (8-16); BILIRUBIN,TOTAL 0.5 mg/dL (0.2-1); BLOOD UREA NITROGEN 16.3 mg/dL (7-18); CALCIUM 9.1 mg/dL (8.5-10.1); CHLORIDE 100 mmol/L (98-107); CO2 26 mmol/L (21-32); GLUCOSE,RANDOM 86 mg/dL (74-106); POTASSIUM 3.9 mmol/L (3.5-5.1); SGOT/AST 21 U/L (15-37); SGPT/ALT 19 U/L (13-61); SODIUM 134 mmol/L (136-145); TOT PROT 6.8 g/dl (6.4-8.2)
[2019-07-26 14:42] LABS: ANISOCYTOSIS 0; MACROCYTOSIS 0; PLATELET ESTIMATE NORMAL
--- NOTE | 2019-07-26 14:44 | PDOC ---
Documentation entered by Holland Santacruz SCRIBE, acting as scribe for Constanza Fernandez MD. Constanza Fernandez MD: This documentation has been prepared by the Neeta webster Nirvannie, SCRIBE, under my direction and personally reviewed by me in its entirety. I confirm that the documentation accurately reflects all work, treatment, procedures, and medical decision making performed by me. Attending Attestation - Resident Resident Name: EranZuleima - ED Attending Attestation I have performed the following: I have examined & evaluated the patient, The case was reviewed & discussed with the resident, I agree w/resident's findings & plan, Exceptions are as noted - HPI HPI: 07/26/19 13:14 The patient is a 88 year old male, with a significant past medical history of HTN, HLD, and DM, who presents to the emergency department with 3 days of nonproductive cough and shortness of breath. Patient and family at bedside endorses subjective fevers and chills yesterday. He notes mild chest discomfort only when coughing and 4 episodes of watery, nonbloody diarrhea today. s. He denies any recent nausea or vomiting. He denies any recent dysuria, frequency, urgency or hematuria. Allergies: PCN Primary Care Physician: Dr. Reddy - Physicial Exam PE: 07/26/19 14:27 GENERAL: Awake, alert, and fully oriented, in no acute distress HEAD: No signs of trauma EYES: PERRLA, EOMI, sclera anicteric, conjunctiva clear ENT: Auricles normal inspection, hearing grossly normal, nares patent, oropharynx clear without exudates. Moist mucosa NECK: Normal ROM, supple, no lymphadenopathy, JVD, or masses LUNGS: Speaking in 3-4 word sentences, conversational dyspnea. Diffuse wheezing but, good air intake. Nocrackles HEART: Regular rate and rhythm, normal S1 and S2, no murmurs, rubs or gallops ABDOMEN: Soft, nontender, normoactive bowel sounds. No guarding, no rebound. No masses EXTREMITIES: Normal range of motion, no edema. No clubbing or cyanosis. No cords, erythema, or tenderness NEUROLOGICAL: Cranial nerves II through XII grossly intact. Normal speech. SKIN: Warm, Dry, normal turgor, no rashes or lesions noted. - Medical Decision Making 07/26/19 14:39 Pt presents to the ED complaining of wheezing and dry cough for two days. Low grade fever in the ED. + wheezing on exam. Differential included PNA, bronchitis, flu, unlikely asthma/copd, unlikely CHF. given lack of prior symptoms. Will treat with nebs and check CXR and flu swab, reassess.
[2019-07-26] MEDS ORDERED: AZITHROMYCIN 250 MG TABLET PO ONE (15:04)
[2019-07-26 16:17] LABS: PH,URINE 5.5 (5.0-8.0); URINE APPEARANCE CLEAR; URINE BILIRUBIN NEGATIVE (NEGATIVE); URINE COLOR YELLOW; URINE GLUCOSE (UA) NEGATIVE (NEGATIVE); URINE KETONE TRACE (NEGATIVE); URINE LEUK ESTERASE NEGATIVE (NEGATIVE); URINE NITRITE NEGATIVE (NEGATIVE); URINE PROTEIN TRACE (NEGATIVE)
[2019-07-26 16:21] VITALS: BP 143/73; PULSE 91; TEMP 99.6
[2019-07-26] MEDS ORDERED: AZITHROMYCIN 500 MG TABLET ONE (16:23)
--- NOTE | 2019-07-27 09:28 | EKG ---
Test Reason : Blood Pressure : / mmHG Vent. 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
== END 2019-07-26 16:27 | disposition home or self-care (01) ==
LOC: JER 10:06
PROC: 3E0337Z Introduction of Electrolytic and Water Balance Substance into Peripheral Vein, Percutaneous Approach (ICD-10-PCS; principal; 2019-07-26)
PROC: 3E0F7GC Introduction of Other Therapeutic Substance into Respiratory Tract, Via Natural or Artificial Opening (ICD-10-PCS; 2019-07-26)
DX: R05 Cough (principal); I10 Essential (primary) hypertension; E78.5 Hyperlipidemia, unspecified; E11.9 Type 2 diabetes mellitus without complications; Z79.84 Long term (current) use of oral hypoglycemic drugs; K21.9 Gastro-esophageal reflux disease without esophagitis
CPT/HCPCS: 36415; 71045-TC-FY; 80053; 81003; 82550; 84484; 85025; 87804; 93005; 93010; 94640; 96360; 99285-25

== ENCOUNTER 2021-09-08 11:27 | Emergency (ER) | payer OTHER ==
[2021-09-08 11:32] VITALS: BP 152/79; PULSE 75; TEMP 98.3; BMI 28.3
[2021-09-08] MEDS ORDERED: ACETAMINOPHEN 500 MG TABLET (FP) PO ONE (12:32)
[2021-09-08] MEDS ORDERED: ACETAMINOPHEN 325 MG TABLET (FP) ONE (12:35)
== END 2021-09-08 13:50 | disposition home or self-care (01) ==
LOC: JERFT 11:27 → JER 11:27 → JERFT 13:50
DX: S20.222A Contusion of left back wall of thorax, initial encounter (principal); W19.XXXA Unspecified fall, initial encounter
CPT/HCPCS: 71046-TC-FY; 71111-TC-FY; 72100-TC-FY; 99284-25

== ENCOUNTER 2022-03-16 09:31 | Inpatient (IN) | payer OTHER ==
[2022-03-16] MEDS ORDERED: ACETAMINOPHEN 1000 MG/100 ML BAG IVPB ONE ×2 (11:40→17:53)
[2022-03-16] MEDS ORDERED: SODIUM CHLORIDE 0.9% 500 ML INFUS.BAG IV ONE (11:40)
[2022-03-16] MEDS ORDERED: ONDANSETRON 4 MG/2 ML VIAL ONE ×2 (11:46→17:53)
[2022-03-16] MEDS ORDERED: ONDANSETRON 4 MG/2 ML VIAL IVPUSH ONE (11:58)
[2022-03-16 12:29] LABS: BASO % 0.4 % (0-2.0); EOS % 0.1 % (0-4.5); HEMATOCRIT 44.3 % (35.4-49); HEMOGLOBIN 15.2 GM/dL (11.7-16.9); LYMPH % 7.4 % (8-40); MCH 33.1 pg (25.7-33.7); MCHC 34.2 g/dl (32.0-35.9); MEAN CELL VOLUME 96.9 fl (80-96); MEAN PLT VOLUME 9.2 fl (7.5-11.1); NEUT % 85.1 % (42.8-82.8); RBC 4.58 M/mm3 (4.00-5.60); RDW 13.3 % (11.9-15.9); WHITE BLOOD COUNT 17.3 K/mm3 (4.0-10.0)
[2022-03-16 12:30] LABS: PLATELET COUNT 237 10^3/uL (134-434)
[2022-03-16] MEDS ORDERED: ACETAMINOPHEN INJECTION 100 ML IVPB ONE ×2 (13:05→17:59)
[2022-03-16 13:18] LABS: EPI CELLS 6 /uL (0-25.1); HYALINE CASTS 0 /uL (0-3.1); PH,URINE 6.5 (5.0-8.0); URINE APPEARANCE CLEAR; URINE BACTERIA 6886 /uL (0-1359); URINE BILIRUBIN NEGATIVE (NEGATIVE); URINE COLOR YELLOW; URINE GLUCOSE (UA) 2+ (NEGATIVE); URINE KETONE 2+ (NEGATIVE); URINE LEUK ESTERASE NEGATIVE (NEGATIVE); URINE NITRITE NEGATIVE (NEGATIVE); URINE PROTEIN 2+ (NEGATIVE); URINE RBC 38 /uL (0-23.9); URINE UROBILINOGEN 0.2 mg/dL (0.2-1.0); URINE WBC 28 /uL (0-25.8)
[2022-03-16] MEDS ORDERED: CEFEPIME HCL/D5W 1 GM/50 ML BAG IVPB ONE (13:31)
[2022-03-16] MEDS ORDERED: CEFEPIME HCL/D5W 2 GM/50 ML BAG IVPB ONE (13:32)
[2022-03-16 13:35] LABS: LACTIC ACID 2.8 mmol/L (0.4-2.0)
[2022-03-16 13:37] LABS: CALCIUM 9.6 mg/dL (8.5-10.1)
[2022-03-16 13:38] LABS: ALBUMIN 4.2 g/dl (3.4-5.0); BLOOD UREA NITROGEN 20.3 mg/dL (7-18)
[2022-03-16 13:41] LABS: CREATININE 1.1 mg/dL (0.55-1.3)
[2022-03-16 13:43] LABS: BILIRUBIN,TOTAL 0.5 mg/dL (0.2-1); TOT PROT 7.4 g/dl (6.4-8.2)
[2022-03-16] MEDS ORDERED: LACTATED RINGERS SOLUTION 1,000 ML/1,000 ML INFUS.BAG IV SCH ×2 (15:00→19:54)
[2022-03-16] MEDS ORDERED: CEFEPIME 2 GM/100 ML BAG IVPB ONE (15:29)
[2022-03-16] MEDS ORDERED: ACETAMINOPHEN 325 MG TABLET (FP) PO PRN (16:11)
[2022-03-16] MEDS ORDERED: VANCOMYCIN/WATER 2 GM/400 ML PREMIX BAG IVPB ONE (16:11)
[2022-03-16] MEDS ORDERED: KETOROLAC TROMETHAMINE 15 MG/ML VIAL IVPUSH PRN (16:11)
[2022-03-16] MEDS ORDERED: ONDANSETRON 4 MG/2 ML VIAL IVPUSH PRN ×3 (16:18→19:55)
[2022-03-16] MEDS ORDERED: INSULIN SLIDING SCALE (NOVOLOG) 1 VIAL SQ SCH (16:30)
[2022-03-16 17:09] LABS: LACTIC ACID 4.5 mmol/L (0.4-2.0)
[2022-03-16] MEDS ORDERED: LACTATED RINGERS SOLUTION 1,000 ML/1,000 ML INFUS.BAG IV STA (17:10)
[2022-03-16] MEDS ORDERED: PROPOFOL 20 ML ONE (17:53)
[2022-03-16] MEDS ORDERED: LIDOCAINE HCL/PF (2%) 40 MG/2 ML VIAL ONE (17:53)
[2022-03-16] MEDS ORDERED: DEXAMETHASONE SOD PHOSPHATE 4 MG/1 ML VIAL ONE (17:53)
[2022-03-16] MEDS ORDERED: SUCCINYLCHOLINE CHLORIDE 200 MG/10 ML SYRINGE ONE (17:54)
[2022-03-16] MEDS ORDERED: DESFLURANE GAS 240 ML BOTTLE IH ONE (17:57)
[2022-03-16] MEDS ORDERED: LIDOCAINE HCL 2% JELLY 10 ML CARTRIDGE ONE (19:06)
[2022-03-16] MEDS ORDERED: LIDOCAINE HCL 2% JELLY 10 ML CARTRIDGE TP ONE (19:13)
[2022-03-16 19:16] LABS: ACTIVATED PTT 23.8 SECONDS (25.2-36.5); INR 1.24 (0.83-1.09); PROTHROMBIN TIME (PATIENT) 14.3 SEC (9.7-13.0)
[2022-03-16] MEDS: LACTATED RINGERS SOLUTION 1,000 ML IV SCH (20:10)
[2022-03-16] MEDS ORDERED: CEFEPIME HCL/D5W 1 GM/50 ML BAG IVPB SCH ×2 (22:00)
[2022-03-16] MEDS ORDERED: CEFEPIME 1 GM in DEXTROSE 5%-WATER 100 ML IVPB SCH (22:00)
[2022-03-16] MEDS ORDERED: DEXMEDETOMIDINE PREMIX 400 MCG/100 ML BAG IVPB SCH (22:15)
[2022-03-16 23:06] LABS: LACTIC ACID 2.5 mmol/L (0.4-2.0)
[2022-03-17] MEDS ORDERED: CEFEPIME 1 GM in DEXTROSE 5%-WATER 100 ML IVPB SCH ×2 (04:00→22:00)
[2022-03-17] MEDS: LACTATED RINGERS SOLUTION 1,000 ML IV SCH ×3 (06:48→21:11)
[2022-03-17] MEDS: INSULIN SLIDING SCALE (NOVOLOG) 1 VIAL SQ SCH ×3 (06:49→19:05)
[2022-03-17 07:39] LABS: HEMATOCRIT 35.4 % (35.4-49); MCH 32.7 pg (25.7-33.7); MCHC 33.7 g/dl (32.0-35.9); MEAN PLT VOLUME 8.4 fl (7.5-11.1); PLATELET COUNT 283 10^3/uL (134-434); RBC 3.66 M/mm3 (4.00-5.60); WHITE BLOOD COUNT 21.1 K/mm3 (4.0-10.0)
[2022-03-17 07:59] LABS: CALCIUM 8.5 mg/dL (8.5-10.1); MAGNESIUM 1.2 mg/dL (1.8-2.4)
[2022-03-17 08:00] LABS: BLOOD UREA NITROGEN 20.5 mg/dL (7-18)
[2022-03-17 08:03] LABS: CREATININE 1.1 mg/dL (0.55-1.3); PHOSPHOROUS 3.6 mg/dL (2.5-4.9)
[2022-03-17] MEDS ORDERED: TAMSULOSIN HCL 0.4 MG CAP PO SCH (08:30)
[2022-03-17] MEDS ORDERED: ASPIRIN 81 MG CHEWABLE TABLETS PO SCH (10:00)
[2022-03-17] MEDS ORDERED: PANTOPRAZOLE 40 MG TABLET PO SCH (10:00)
[2022-03-17] MEDS ORDERED: LOSARTAN POTASSIUM 50 MG TABLET PO SCH (10:00)
[2022-03-17] MEDS ORDERED: VANCOMYCIN 1 GM in D5W (PRE-DOCKED) 1,000 MG/250 ML IVPB SCH ×2 (10:00)
[2022-03-17] MEDS ORDERED: ENOXAPARIN NA (PORCINE) 40 MG/0.4 ML DISP.SYRIN SQ SCH (10:00)
[2022-03-17] MEDS: TAMSULOSIN HCL 0.4 MG CAP PO SCH (10:44)
[2022-03-17] MEDS: ENOXAPARIN NA (PORCINE) 40 MG/0.4 ML DISP.SYRIN SQ SCH (10:44)
[2022-03-17] MEDS: PANTOPRAZOLE 40 MG TABLET PO SCH (10:45)
[2022-03-17] MEDS: LOSARTAN POTASSIUM 50 MG TABLET PO SCH (10:45)
[2022-03-17] MEDS: ASPIRIN 81 MG CHEWABLE TABLETS PO SCH (10:45)
[2022-03-17] MEDS ORDERED: VANCOMYCIN 1 GM/200 ML PREMIX BAG IVPB SCH ×2 (17:00)
[2022-03-17] MEDS ORDERED: DEXMEDETOMIDINE PREMIX 400 MCG/100 ML BAG IVPB SCH (22:30)
[2022-03-18 07:11] LABS: BASO % 0.8 % (0-2.0); EOS % 2.1 % (0-4.5); HEMATOCRIT 35.2 % (35.4-49); HEMOGLOBIN 11.9 GM/dL (11.7-16.9); LYMPH % 13.1 % (8-40); MCH 32.6 pg (25.7-33.7); MCHC 33.9 g/dl (32.0-35.9); MEAN CELL VOLUME 96.2 fl (80-96); MEAN PLT VOLUME 8.3 fl (7.5-11.1); PLATELET COUNT 271 10^3/uL (134-434); RBC 3.66 M/mm3 (4.00-5.60); RDW 13.1 % (11.9-15.9); WHITE BLOOD COUNT 10.8 K/mm3 (4.0-10.0)
[2022-03-18 07:31] LABS: CALCIUM 8.6 mg/dL (8.5-10.1)
[2022-03-18 07:32] LABS: BLOOD UREA NITROGEN 13.5 mg/dL (7-18); MAGNESIUM 1.5 mg/dL (1.8-2.4)
[2022-03-18 07:35] LABS: CREATININE 0.7 mg/dL (0.55-1.3); PHOSPHOROUS 2.2 mg/dL (2.5-4.9)
[2022-03-18 07:36] LABS: BILIRUBIN,TOTAL 0.4 mg/dL (0.2-1); TOT PROT 5.4 g/dl (6.4-8.2)
[2022-03-18 07:40] LABS: ALBUMIN 2.8 g/dl (3.4-5.0)
[2022-03-18] MEDS ORDERED: VANCOMYCIN 1,000 MG in DEXTROSE 5%-WATER - 250 ML IVPB SCH (09:00)
[2022-03-18] MEDS: INSULIN SLIDING SCALE (NOVOLOG) 1 VIAL SQ SCH ×3 (09:49→16:08)
[2022-03-18] MEDS: ENOXAPARIN NA (PORCINE) 40 MG/0.4 ML DISP.SYRIN SQ SCH (09:49)
[2022-03-18] MEDS: TAMSULOSIN HCL 0.4 MG CAP PO SCH (09:49)
[2022-03-18] MEDS: VANCOMYCIN/WATER FOR INJ (PEG) 1,000 MG/200 ML BAG IVPB SCH ×2 (09:49→21:32)
[2022-03-18] MEDS: ASPIRIN 81 MG CHEWABLE TABLETS PO SCH (09:50)
[2022-03-18] MEDS: amLODIPine BESYLATE 5 MG TABLET (FP) PO SCH (09:50)
[2022-03-18] MEDS: PANTOPRAZOLE 40 MG TABLET PO SCH (09:50)
[2022-03-18] MEDS: LOSARTAN POTASSIUM 50 MG TABLET PO SCH ×2 (09:51)
[2022-03-18] MEDS ORDERED: NAPH,MB-DB/K PH,MBDB POWDER PACKET PO SCH (15:07)
[2022-03-18] MEDS ORDERED: NAPH,MB-DB/K PH,MBDB POWDER PACKET PO ONE (15:07)
[2022-03-18] MEDS ORDERED: MAGNESIUM SULF 50% (8.12 MEQ/2 ML-1 GM VIAL) IVPB ONE (15:08)
[2022-03-18] MEDS ORDERED: POLYETHYLENE GLYCOL (HEALTHYLAX) 3350 17 GM PACKET PO SCH (17:52)
[2022-03-18] MEDS: POLYETHYLENE GLYCOL (HEALTHYLAX) 3350 17 GM PACKET PO SCH (21:32)
[2022-03-18] MEDS ORDERED: ALBUTEROL SO4 0.083% IH SOL 2.5 MG/3 ML VIAL.NEB. NEB PRN (21:48)
[2022-03-18] MEDS ORDERED: SIMETHICONE 40 MG/0.6 ML BOTTLE PO PRN (21:50)
[2022-03-19] MEDS: INSULIN SLIDING SCALE (NOVOLOG) 1 VIAL SQ SCH ×3 (06:53→15:44)
[2022-03-19 07:05] LABS: BASO % 0.4 % (0-2.0); EOS % 3.2 % (0-4.5); HEMATOCRIT 35.4 % (35.4-49); HEMOGLOBIN 12.1 GM/dL (11.7-16.9); LYMPH % 20.5 % (8-40); MCH 32.9 pg (25.7-33.7); MCHC 34.2 g/dl (32.0-35.9); MEAN CELL VOLUME 95.9 fl (80-96); MEAN PLT VOLUME 8.4 fl (7.5-11.1); MONO % 14.2 % (3.8-10.2); NEUT % 61.7 % (42.8-82.8); PLATELET COUNT 259 10^3/uL (134-434); RBC 3.69 M/mm3 (4.00-5.60); RDW 13.2 % (11.9-15.9); WHITE BLOOD COUNT 6.5 K/mm3 (4.0-10.0)
[2022-03-19 07:19] LABS: BLOOD UREA NITROGEN 11.8 mg/dL (7-18); CALCIUM 8.7 mg/dL (8.5-10.1)
[2022-03-19 07:23] LABS: CREATININE 0.7 mg/dL (0.55-1.3)
[2022-03-19] MEDS: TAMSULOSIN HCL 0.4 MG CAP PO SCH (08:30)
[2022-03-19 08:47] LABS: MAGNESIUM 1.6 mg/dL (1.8-2.4)
[2022-03-19 08:50] LABS: PHOSPHOROUS 3.3 mg/dL (2.5-4.9)
[2022-03-19] MEDS: ASPIRIN 81 MG CHEWABLE TABLETS PO SCH (09:42)
[2022-03-19] MEDS: LOSARTAN POTASSIUM 50 MG TABLET PO SCH (09:42)
[2022-03-19] MEDS: VANCOMYCIN/WATER FOR INJ (PEG) 1,000 MG/200 ML BAG IVPB SCH ×2 (09:42→22:01)
[2022-03-19] MEDS: ENOXAPARIN NA (PORCINE) 40 MG/0.4 ML DISP.SYRIN SQ SCH (09:43)
[2022-03-19] MEDS: POLYETHYLENE GLYCOL (HEALTHYLAX) 3350 17 GM PACKET PO SCH ×2 (09:43→22:03)
[2022-03-19] MEDS: amLODIPine BESYLATE 5 MG TABLET (FP) PO SCH (09:43)
[2022-03-19] MEDS: PANTOPRAZOLE 40 MG TABLET PO SCH (09:43)
[2022-03-20] MEDS: INSULIN SLIDING SCALE (NOVOLOG) 1 VIAL SQ SCH ×3 (06:50→17:24)
[2022-03-20] MEDS ORDERED: VANCOMYCIN/WATER FOR INJ (PEG) 1,000 MG/200 ML BAG IVPB SCH (09:00)
[2022-03-20] MEDS: TAMSULOSIN HCL 0.4 MG CAP PO SCH (09:11)
[2022-03-20] MEDS: ASPIRIN 81 MG CHEWABLE TABLETS PO SCH (09:50)
[2022-03-20] MEDS: LOSARTAN POTASSIUM 50 MG TABLET PO SCH (09:50)
[2022-03-20] MEDS: PANTOPRAZOLE 40 MG TABLET PO SCH (09:50)
[2022-03-20] MEDS: amLODIPine BESYLATE 5 MG TABLET (FP) PO SCH (09:50)
[2022-03-20] MEDS: POLYETHYLENE GLYCOL (HEALTHYLAX) 3350 17 GM PACKET PO SCH ×2 (09:51→22:40)
[2022-03-20] MEDS: ENOXAPARIN NA (PORCINE) 40 MG/0.4 ML DISP.SYRIN SQ SCH (09:51)
[2022-03-21] MEDS: INSULIN SLIDING SCALE (NOVOLOG) 1 VIAL SQ SCH ×3 (06:50→16:54)
[2022-03-21] MEDS ORDERED: VANCOMYCIN/WATER FOR INJ (PEG) 1,000 MG/200 ML BAG IVPB SCH (08:00)
[2022-03-21] MEDS: TAMSULOSIN HCL 0.4 MG CAP PO SCH (09:54)
[2022-03-21] MEDS: LOSARTAN POTASSIUM 50 MG TABLET PO SCH (09:55)
[2022-03-21] MEDS: amLODIPine BESYLATE 5 MG TABLET (FP) PO SCH (09:55)
[2022-03-21] MEDS: PANTOPRAZOLE 40 MG TABLET PO SCH (09:55)
[2022-03-21] MEDS: ASPIRIN 81 MG CHEWABLE TABLETS PO SCH (09:56)
[2022-03-21] MEDS: ENOXAPARIN NA (PORCINE) 40 MG/0.4 ML DISP.SYRIN SQ SCH (09:56)
[2022-03-21] MEDS: POLYETHYLENE GLYCOL (HEALTHYLAX) 3350 17 GM PACKET PO SCH ×2 (09:56→21:45)
[2022-03-21 10:07] LABS: CALCIUM 8.8 mg/dL (8.5-10.1)
[2022-03-21 10:08] LABS: BLOOD UREA NITROGEN 14.5 mg/dL (7-18)
[2022-03-21 10:11] LABS: CREATININE 0.6 mg/dL (0.55-1.3)
[2022-03-21] MEDS: VANCOMYCIN/WATER FOR INJ (PEG) 1,000 MG/200 ML BAG IVPB SCH (13:51)
[2022-03-22] MEDS: VANCOMYCIN/WATER FOR INJ (PEG) 1,000 MG/200 ML BAG IVPB SCH ×2 (01:13→15:14)
[2022-03-22] MEDS: INSULIN SLIDING SCALE (NOVOLOG) 1 VIAL SQ SCH ×3 (06:23→19:12)
[2022-03-22 08:26] LABS: BASO % 0.5 % (0-2.0); HEMATOCRIT 37.2 % (35.4-49); HEMOGLOBIN 12.3 GM/dL (11.7-16.9); LYMPH % 25.2 % (8-40); MCHC 33.1 g/dl (32.0-35.9); MEAN CELL VOLUME 96.8 fl (80-96); MEAN PLT VOLUME 8.2 fl (7.5-11.1); MONO % 15.9 % (3.8-10.2); NEUT % 53.4 % (42.8-82.8); PLATELET COUNT 334 10^3/uL (134-434); RBC 3.85 M/mm3 (4.00-5.60); RDW 12.6 % (11.9-15.9)
[2022-03-22 09:07] LABS: ALBUMIN 2.9 g/dl (3.4-5.0)
[2022-03-22 09:08] LABS: BLOOD UREA NITROGEN 15.8 mg/dL (7-18)
[2022-03-22 09:10] LABS: CREATININE 0.7 mg/dL (0.55-1.3)
[2022-03-22 09:12] LABS: BILIRUBIN,TOTAL 0.7 mg/dL (0.2-1)
[2022-03-22 09:14] LABS: TOT PROT 5.7 g/dl (6.4-8.2)
[2022-03-22] MEDS: amLODIPine BESYLATE 5 MG TABLET (FP) PO SCH (09:32)
[2022-03-22] MEDS: LOSARTAN POTASSIUM 50 MG TABLET PO SCH (09:32)
[2022-03-22] MEDS: ENOXAPARIN NA (PORCINE) 40 MG/0.4 ML DISP.SYRIN SQ SCH (09:32)
[2022-03-22] MEDS: PANTOPRAZOLE 40 MG TABLET PO SCH (09:32)
[2022-03-22] MEDS: TAMSULOSIN HCL 0.4 MG CAP PO SCH (09:32)
[2022-03-22] MEDS: ASPIRIN 81 MG CHEWABLE TABLETS PO SCH (09:32)
[2022-03-22] MEDS: POLYETHYLENE GLYCOL (HEALTHYLAX) 3350 17 GM PACKET PO SCH ×2 (09:33→23:26)
[2022-03-22 14:16] VITALS: BMI 28.0
[2022-03-23] MEDS: VANCOMYCIN/WATER FOR INJ (PEG) 1,000 MG/200 ML BAG IVPB SCH ×2 (04:24→17:21)
[2022-03-23] MEDS: INSULIN SLIDING SCALE (NOVOLOG) 1 VIAL SQ SCH ×3 (06:29→17:01)
[2022-03-23] MEDS: ENOXAPARIN NA (PORCINE) 40 MG/0.4 ML DISP.SYRIN SQ SCH (09:40)
[2022-03-23] MEDS: POLYETHYLENE GLYCOL (HEALTHYLAX) 3350 17 GM PACKET PO SCH ×2 (09:40→22:40)
[2022-03-23] MEDS: ASPIRIN 81 MG CHEWABLE TABLETS PO SCH (09:41)
[2022-03-23] MEDS: PANTOPRAZOLE 40 MG TABLET PO SCH (09:41)
[2022-03-23] MEDS: TAMSULOSIN HCL 0.4 MG CAP PO SCH (09:41)
[2022-03-23] MEDS: LOSARTAN POTASSIUM 50 MG TABLET PO SCH (09:41)
[2022-03-23] MEDS: amLODIPine BESYLATE 5 MG TABLET (FP) PO SCH (09:41)
[2022-03-24] MEDS: VANCOMYCIN/WATER FOR INJ (PEG) 1,000 MG/200 ML BAG IVPB SCH ×2 (04:32→15:49)
[2022-03-24] MEDS: INSULIN SLIDING SCALE (NOVOLOG) 1 VIAL SQ SCH ×3 (07:03→16:03)
[2022-03-24] MEDS: ENOXAPARIN NA (PORCINE) 40 MG/0.4 ML DISP.SYRIN SQ SCH (09:02)
[2022-03-24] MEDS: TAMSULOSIN HCL 0.4 MG CAP PO SCH (09:02)
[2022-03-24] MEDS: POLYETHYLENE GLYCOL (HEALTHYLAX) 3350 17 GM PACKET PO SCH ×2 (09:02→21:04)
[2022-03-24] MEDS: PANTOPRAZOLE 40 MG TABLET PO SCH (09:03)
[2022-03-24] MEDS: LOSARTAN POTASSIUM 50 MG TABLET PO SCH (09:03)
[2022-03-24] MEDS: ASPIRIN 81 MG CHEWABLE TABLETS PO SCH (09:03)
[2022-03-24] MEDS: amLODIPine BESYLATE 5 MG TABLET (FP) PO SCH (09:03)
[2022-03-24] MEDS ORDERED: INSULIN (NOVOLOG) ASPART 100 UNITS/ML 10ML VIAL ONE (10:42)
[2022-03-25] MEDS: VANCOMYCIN/WATER FOR INJ (PEG) 1,000 MG/200 ML BAG IVPB SCH ×2 (05:52→15:46)
[2022-03-25] MEDS ORDERED: INSULIN (NOVOLOG) ASPART 100 UNITS/ML 10ML VIAL ONE (06:07)
[2022-03-25] MEDS: INSULIN SLIDING SCALE (NOVOLOG) 1 VIAL SQ SCH ×3 (06:08→17:00)
[2022-03-25] MEDS: ASPIRIN 81 MG CHEWABLE TABLETS PO SCH (09:04)
[2022-03-25] MEDS: PANTOPRAZOLE 40 MG TABLET PO SCH (09:04)
[2022-03-25] MEDS: LOSARTAN POTASSIUM 50 MG TABLET PO SCH (09:04)
[2022-03-25] MEDS: TAMSULOSIN HCL 0.4 MG CAP PO SCH (09:04)
[2022-03-25] MEDS: amLODIPine BESYLATE 5 MG TABLET (FP) PO SCH (09:04)
[2022-03-25] MEDS: ENOXAPARIN NA (PORCINE) 40 MG/0.4 ML DISP.SYRIN SQ SCH (09:04)
[2022-03-25] MEDS: POLYETHYLENE GLYCOL (HEALTHYLAX) 3350 17 GM PACKET PO SCH ×2 (09:04→21:41)
[2022-03-25 22:02] VITALS: RESP 20
[2022-03-26] MEDS: VANCOMYCIN/WATER FOR INJ (PEG) 1,000 MG/200 ML BAG IVPB SCH ×2 (05:17→16:45)
[2022-03-26] MEDS: INSULIN SLIDING SCALE (NOVOLOG) 1 VIAL SQ SCH ×3 (06:44→16:51)
[2022-03-26] MEDS ORDERED: GLIMEPIRIDE 2 MG TABLET PO SCH (07:00)
[2022-03-26] MEDS: LOSARTAN POTASSIUM 50 MG TABLET PO SCH (09:39)
[2022-03-26] MEDS: amLODIPine BESYLATE 5 MG TABLET (FP) PO SCH (09:39)
[2022-03-26] MEDS: ENOXAPARIN NA (PORCINE) 40 MG/0.4 ML DISP.SYRIN SQ SCH (09:39)
[2022-03-26] MEDS: PANTOPRAZOLE 40 MG TABLET PO SCH (09:39)
[2022-03-26] MEDS: ASPIRIN 81 MG CHEWABLE TABLETS PO SCH (09:39)
[2022-03-26] MEDS: TAMSULOSIN HCL 0.4 MG CAP PO SCH (09:39)
[2022-03-26] MEDS: POLYETHYLENE GLYCOL (HEALTHYLAX) 3350 17 GM PACKET PO SCH (09:40)
[2022-03-26 14:14] VITALS: BP 133/77; PULSE 92; TEMP 98.2
== END 2022-03-26 19:10 | DRG 871 ==
LOC: JER 09:31 → JERBED 16:03 → JICU 22:23 → J8W 03-19 20:29 → J7W 03-22 15:26
PROVIDERS: ADMIT Internal Medicine; ATTEND Internal Medicine
PROC: 0TJB8ZZ Inspection of Bladder, Via Natural or Artificial Opening Endoscopic (ICD-10-PCS; 2022-03-16)
PROC: 0T9780Z Drainage of Left Ureter with Drainage Device, Via Natural or Artificial Opening Endoscopic (ICD-10-PCS; 2022-03-16)
PROC: 02HV33Z Insertion of Infusion Device into Superior Vena Cava, Percutaneous Approach (ICD-10-PCS; principal; 2022-03-22)
PROC: B518ZZA Fluoroscopy of Superior Vena Cava, Guidance (ICD-10-PCS; 2022-03-22)
DX: A40.8 Other streptococcal sepsis (principal); U07.1 COVID-19; N13.6 Pyonephrosis; N12 Tubulo-interstitial nephritis, not specified as acute or chronic; E11.9 Type 2 diabetes mellitus without complications; I10 Essential (primary) hypertension; K21.9 Gastro-esophageal reflux disease without esophagitis; E78.5 Hyperlipidemia, unspecified; E66.9 Obesity, unspecified; Z68.28 Body mass index [BMI] 28.0-28.9, adult; R14.0 Abdominal distension (gaseous); G47.30 Sleep apnea, unspecified; M54.9 Dorsalgia, unspecified; Z88.0 Allergy status to penicillin; N40.0 Benign prostatic hyperplasia without lower urinary tract symptoms
CPT/HCPCS: 36415; 36569; 71045-TC-FY; 74018-TC-FY; 74177-TC; 76000-TC-FY; 77001-TC-FY; 80048; 80053; 81003; 82962; 83605; 83690; 83735; 84100; 85025; 85027; 85610; 85730; 86850; 86900; 86901; 87040; 87086; 87186; 93005; 93010; 93306-TC; 94010; 94640; 94660; 94760; 97116-GP; 97162-GP; 99285-25; C1751; C2617; C9803-CS; G0480; Q9967; U0003; U0005